=== PATIENT | female | born 1960 | race Caucasian/White ===

== ENCOUNTER 2019-05-25 21:39 | Inpatient (IN) | payer OTHER ==
[2019-05-25] MEDS ORDERED: IPRATROPIUM/ALBUTEROL 0.5-2.5 MG/3 ML AMPUL NEB ONE ×2 (21:57→22:18)
[2019-05-25] MEDS ORDERED: FUROSEMIDE INJ/PF 40 MG/4 ML SDV ONE (22:01)
[2019-05-25] MEDS ORDERED: NITROGLYCERIN 2% OINTMENT 1 GM PACKET ONE (22:01)
[2019-05-25] MEDS ORDERED: ASPIRIN 81 MG TABLET, CHEWABLE PO ONE (22:02)
[2019-05-25] MEDS ORDERED: FUROSEMIDE INJ/PF 40 MG/4 ML SDV IV ONE (22:05)
[2019-05-25] MEDS ORDERED: NITROGLYCERIN 2% OINTMENT 1 GM PACKET TP ONE (22:06)
--- NOTE | 2019-05-25 22:07 | ER Document Report ---
ED General - General Stated Complaint: BREATHING PROBLEMS Time Seen by Provider: 05/25/19 22:02 Primary Care Provider: MAYUR FAN MD [HONORARY] - Follow up as needed Mode of Arrival: Medic Information source: Patient, Emergency Med Personnel Notes: 58-year-old female with COPD, hypertension, previous [place], lung cancer (requiring lobectomy) presents with an acute onset of shortness of breath that started just prior to arrival while driving home. Patient does report recent illness with a nonproductive cough, nausea. She did have a recent hospitalization approximately 1 month ago for a COPD exacerbation. She denies any continuous tobacco use. Prior to arrival patient did receive breathing treatments, magnesium, Solu-Medrol and does report some improvement of her shortness of br eath. - HPI Onset: Just prior to arrival Onset/Duration: Sudden Quality of pain: No pain Severity: None Pain Level: Denies Associated symptoms: Nonproductive cough, Nausea, Shortness of breath, Sweating. denies: Body/muscle aches, Chest pain, Fever, Headache, Vomiting, Rhinnorhea Exacerbated by: Coughing Relieved by: Denies Similar symptoms previously: Yes Recently seen / treated by doctor: Yes Past Medical History - General Information source: Patient - Social History Smoking Status: Former Smoker Frequency of alcohol use: None Drug Abuse: None Lives with: Spouse/Significant other Family History: Reviewed & Not Pertinent Patient has suicidal ideation: No Patient has homicidal ideation: No - Medical History Medical History: Negative Review of Systems - Review of Systems Notes: REVIEW OF SYSTEMS: CONSTITUTIONAL : Denies fever, chills, or sweats. Denies recent illness. Denies weight loss, recent hospitalizations. EENT: Denies visual changes, eye pain. Denies sore throat, oral lesions, difficulty swallowing. CARDIOVASCULAR: Denies chest pain. Denies palpitations. Denies lower extremity edema. RESPIRATORY: + cough. + shortness of breath, wheezing. GASTROINTESTINAL: Denies abdominal pain or distention. Denies nausea, vomiting, or diarrhea. Denies blood in vomitus, stools, or per rectum. Denies black, tarry stools. Denies constipation. GENITOURINARY: Denies difficulty urinating, painful urination, frequency, blood in urine, or vaginal discharge. MUSCULOSKELETAL: Denies back or neck pain or stiffness. Denies joint pain or swelling. SKIN: Denies rash, lesions or sores. HEMATOLOGIC : Denies easy bruising or bleeding. LYMPHATIC: Denies swollen glands. NEUROLOGICAL: Denies confusion or altered mental status. Denies loss of cons ciousness. Denies dizziness or lightheadedness. Denies headache. Denies weakness or paralysis. Denies problems difficulty with ambulation, slurred speech. Denies sensory loss, numbness, or tingling. Denies seizures. PSYCHIATRIC: Denies anxiety or stress. Denies depression, suicidal ideation, or homicidal ideation. Denies visual or auditory hallucinations. Physical Exam - Vital signs Vitals: Resp Pulse Ox 24 H 97 05/25/19 22:00 05/25/19 22:00 - Notes Notes: PHYSICAL EXAMINATION: GENERAL: Moderate distress, on nonrebreather HEAD: Atraumatic, normocephalic. EYES: Pupils equal round and reactive to light, extraocular movements intact, conjunctiva are normal. ENT: Nares patent, oropharynx clear without exudates. Moist mucous membranes. NECK: Normal range of motion, supple without lymphadenopathy LUNGS: Coarse breath sounds bilaterally, expiratory wheezing, increased work of breathing. HEART: Regular rate and rhythm without murmurs ABDOMEN: Soft, nontender, nondistended abdomen. No guarding, no rebound. No masses appreciated. Female : deferred Musculoskeletal: Normal range of motion, no pitting or edema. No cyanosis. NEUROLOGICAL: Cranial nerves grossly intact. Normal speech, normal gait. Normal sensory, motor exams PSYCH: Normal mood, normal affect. SKIN: Warm, Dry, normal turgor, no rashes or lesions noted. Course - Re-evaluation Re-evalutation: 05/26/19 03:30 Laboratory 05/25/19 05/25/19 05/25/19 21:46 21:46 21:46 WBC 12.5 H RBC 4.27 Hgb 12.5 Hct 38.0 MCV 89 MCH 29.4 MCHC 33.0 RDW 14.7 H Plt Count 333 Lymph % (Auto) 16.8 [place] % (Auto) 9.2 Eos % (Auto) 2.6 Baso % (Auto) 0.8 Absolute Neuts (auto) 8.8 H Absolute Lymphs (auto) 2.1 Absolute Monos (auto) 1.1 Absolute Eos (auto) 0.3 Absolute Basos (auto) 0.1 Seg Neutrophils % 70.6 PT 15.9 H INR 1.26 Carbonic Acid HCO3/H2CO3 Ratio ABG pH ABG pCO2 ABG pO2 ABG HCO3 ABG Total CO2 ABG O2 Saturation ABG Base Excess VBG pH VBG pCO2 VBG HCO3 VBG Base Excess FiO2 Sodium 139.9 Potassium 2.8 L* Chloride 106 Carbon Dioxide 22 Anion Gap 12 BUN 11 Creatinine 0.64 Est GFR ( Amer) > 60 Est GFR (MDRD) Non-Af > 60 Glucose 156 H Calcium 8.2 L Magnesium Total Bilirubin 0.7 Direct Bilirubin 0.2 Neonat Total Bilirubin Not Reportable Neonat Direct Bilirubin Not Reportable Neonat Indirect Bili Not Reportable AST 48 H ALT 18 Alkaline Phosphatase 82 Creatine Kinase 55 CK-MB (CK-2) Troponin I NT-Pro-B Natriuret Pep Total Protein 6.2 L Albumin 3.5 Urine Color Urine Appearance Urine pH Ur Specific [place] Urine Protein Urine Glucose (UA) Urine Ketones Urine Blood Urine Nitrite Urine Bilirubin Urine Urobilinogen Ur Leukocyte Esterase Urine WBC (Auto) Urine RBC (Auto) U Hyaline Cast (Auto) Squamous Epi Cells Auto Urine Mucus (Auto) Urine Ascorbic Acid 05/25/19 05/25/19 05/25/19 21:46 21:46 21:46 WBC RBC Hgb Hct MCV MCH MCHC RDW Plt Count Lymph % (Auto) [place] % (Auto) Eos % (Auto) Baso % (Auto) Absolute Neuts (auto) Absolute Lymphs (auto) Absolute Monos (auto) Absolute Eos (auto) Absolute Basos (auto) Seg Neutrophils % PT INR Carbonic Acid HCO3/H2CO3 Ratio ABG pH ABG pCO2 ABG pO2 ABG HCO3 ABG Total CO2 ABG O2 Saturation ABG Base Excess VBG pH 7.34 VBG pCO2 36.8 VBG HCO3 19.5 L VBG Base Excess -5.4 FiO2 Sodium Potassium Chloride Carbon Dioxide Anion Gap BUN Creatinine Est GFR ( Amer) Est GFR (MDRD) Non-Af Glucose Calcium Magnesium 3.1 H Total Bilirubin Direct Bilirubin Neonat Total Bilirubin Neonat Direct Bilirubin Neonat Indirect Bili AST ALT Alkaline Phosphatase Creatine Kinase CK-MB (CK-2) 0.62 Troponin I 0.019 NT-Pro-B Natriuret Pep 1820 H Total Protein Albumin Urine Color Urine Appearance Urine pH Ur Specific [place] Urine Protein Urine Glucose (UA) Urine Ketones Urine Blood Urine Nitrite Urine Bilirubin Urine Urobilinogen Ur Leukocyte Esterase Urine WBC (Auto) Urine RBC (Auto) U Hyaline Cast (Auto) Squamous Epi Cells Auto Urine Mucus (Auto) Urine Ascorbic Acid 05/25/19 05/25/19 22:17 23:20 WBC RBC Hgb Hct MCV MCH MCHC RDW Plt Count Lymph % (Auto) [place] % (Auto) Eos % (Auto) Baso % (Auto) Absolute Neuts (auto) Absolute Lymphs (auto) Absolute Monos (auto) Absolute Eos (auto) Absolute Basos (auto) Seg Neutrophils % PT INR Carbonic Acid 0.73 L HCO3/H2CO3 Ratio 26:1 ABG pH 7.52 H ABG pCO2 24.3 L ABG pO2 105.5 H ABG HCO3 19.4 L ABG Total CO2 20.2 L ABG O2 Saturation 98.4 H ABG Base Excess -1.7 VBG pH VBG pCO2 VBG HCO3 VBG Base Excess FiO2 35% Sodium Potassium Chloride Carbon Dioxide Anion Gap BUN Creatinine Est GFR ( Amer) Est GFR (MDRD) Non-Af Glucose Calcium Magnesium Total Bilirubin Direct Bilirubin Neonat Total Bilirubin Neonat Direct Bilirubin Neonat Indirect Bili AST ALT Alkaline Phosphatase Creatine Kinase CK-MB (CK-2) Troponin I NT-Pro-B Natriuret Pep Total Protein Albumin Urine Color STRAW Urine Appearance CLEAR Urine pH 7.0 Ur Specific [place] 1.010 Urine Protein NEGATIVE Urine Glucose (UA) NEGATIVE Urine Ketones NEGATIVE Urine Blood NEGATIVE Urine Nitrite NEGATIVE Urine Bilirubin NEGATIVE Urine Urobilinogen NEGATIVE Ur Leukocyte Esterase NEGATIVE Urine WBC (Auto) 2 Urine RBC (Auto) 1 U Hyaline Cast (Auto) 4 Squamous Epi Cells Auto <1 Urine Mucus (Auto) RARE Urine Ascorbic Acid NEGATIVE Chest X-Ray 05/25/19 22:02 IMPRESSION: Bibasilar airspace opacities concerning for pneumonia. copyright 2010 [employer]- All Rights Reserved Chest/Abdomen CTA 05/25/19 22:03 IMPRESSION:No evidence of pulmonary embolus Prominent pulmonary arteries suggesting hypertension Emphysema Mixed alveolar and interstitial infiltrates predominantly in the lung bases. These are nonspecific but may reflect developing edema. Temp Pulse Resp BP Pulse Ox 24 H 97 05/25/19 22:00 05/25/19 22:00 05/26/19 03:31 58-year-old female presents via EMS in respiratory distress. Patient reports a sudden onset of shortness of breath while driving. Upon arrival patient is on a nonrebreather, has increased work of breathing and accessory muscle use. She is pale, diaphoretic, tachypneic and hypoxic. Patient was transitioned from nonrebreather to BiPAP and had immediate improvement of her shortness of breath. Because of the patient's sudden onset of shortness of breath, history of lung cancer CTA was obtained but showed no evidence of pulmonary embolism. Pneumonia was noted. Patient was admitted in April for a COPD exacerbation so she will be treated as hospital-acquired pneumonia. CBC shows a mild leukocytosis. CMP shows hypokalemia with a potassium of 2.8. Patient did receive vancomycin, Zosyn. Dr. Ruano hospitalist admitting the patient has requested azithromycin as he thinks this is an atypical pneumonia. On reevaluation patient is requesting trial off BiPAP. Patient did maintain an O2 saturation of 93% while on room air. Patient has been accepted by the hospitalist to telemetry. - Vital Signs Vital signs: Temp Pulse Resp BP Pulse Ox 24 H 97 05/25/19 22:00 05/25/19 22:00 - Laboratory Result Diagrams: 05/25/19 21:46 05/25/19 21:46 Laboratory results interpreted by me: 05/25/19 05/25/19 05/25/19 21:46 21:46 21:46 WBC 12.5 H RDW 14.7 H Absolute Neuts (auto) 8.8 H PT 15.9 H Carbonic Acid ABG pH ABG pCO2 ABG pO2 ABG HCO3 ABG Total CO2 ABG O2 Saturation VBG HCO3 Potassium 2.8 L* Glucose 156 H Calcium 8.2 L Magnesium AST 48 H NT-Pro-B Natriuret Pep Total Protein 6.2 L 05/25/19 05/25/19 05/25/19 21:46 21:46 21:46 WBC RDW Absolute Neuts (auto) PT Carbonic Acid ABG pH ABG pCO2 ABG pO2 ABG HCO3 ABG Total CO2 ABG O2 Saturation VBG HCO3 19.5 L Potassium Glucose Calcium Magnesium 3.1 H AST NT-Pro-B Natriuret Pep 1820 H Total Protein 05/25/19 23:20 WBC RDW Absolute Neuts (auto) PT Carbonic Acid 0.73 L ABG pH 7.52 H ABG pCO2 24.3 L ABG pO2 105.5 H ABG HCO3 19.4 L ABG Total CO2 20.2 L ABG O2 Saturation 98.4 H VBG HCO3 Potassium Glucose Calcium Magnesium AST NT-Pro-B Natriuret Pep Total Protein - Diagnostic Test Radiology reviewed: Image reviewed, Reports reviewed - EKG Interpretation by Me EKG shows normal: Sinus rhythm When compared to previous EKG there are: No significant change Critical Care Note - Critical Care Note Total time excluding time spent on procedures (mins): 38 - Minutes of critical care time spent in direct contact evaluating and reevaluating the patient, treating symptoms, reviewing labs and studies and speaking with family and consultants excluding any procedures Discharge - Discharge Clinical Impression: Respiratory distress, Healthcare-associated pneumonia, History of lung cancer, History of COPD, Hypokalemia Condition: Good Disposition: ADMITTED INPATIENT Admitting Provider: Bindu (Hospitalist) Unit Admitted: Telemetry Referrals: MAYUR FAN MD [HONORARY] - Follow up as needed
[2019-05-25 22:22] LABS: VENOUS BLOOD BASE EXCESS -5.4 mmol/L; VENOUS BLOOD HCO3 19.5 mmol/L (20-32); VENOUS BLOOD PCO2 36.8 mmHg (35-63); VENOUS BLOOD PH 7.34 (7.30-7.42)
[2019-05-25 22:23] LABS: ABSOLUTE BASOPHILS # (AUTO) 0.1 10^3/uL (0.0-0.2); ABSOLUTE EOSINOPHILS # (AUTO) 0.3 10^3/uL (0.0-0.6); ABSOLUTE LYMPHOCYTES (AUTO) 2.1 10^3/uL (0.5-4.7); ABSOLUTE MONOCYTES (AUTO) 1.1 10^3/uL (0.1-1.4); ABSOLUTE NEUT (AUTO) 8.8 10^3/uL (1.7-8.2); BASOPHILS % (AUTO) 0.8 % (0-2); EOSINOPHILS % (AUTO) 2.6 % (0-6); HEMOGLOBIN 12.5 g/dL (12.0-15.5); LYMPHOCYTES % (AUTO) 16.8 % (13-45); MEAN CORPUSCULAR HEMOGLOBIN 29.4 pg (27.0-33.4); MEAN CORPUSCULAR VOLUME 89 fl (80-97); MONOCYTES % (AUTO) 9.2 % (3-13); PLATELET COUNT 333 10^3/uL (150-450); RED BLOOD COUNT 4.27 10^6/uL (3.72-5.28); RED CELL DISTRIBUTION WIDTH 14.7 % (11.5-14.0); SEGMENTED NEUTROPHILS % (AUTO) 70.6 % (42-78); TOTAL CELLS COUNTED % (AUTO) 100 %; WHITE BLOOD COUNT 12.5 10^3/uL (4.0-10.5)
[2019-05-25 22:33] LABS: INTERNATIONAL RATION (INR) 1.26; PROTHROMBIN TIME 15.9 SEC (11.4-15.4)
--- NOTE | 2019-05-25 22:36 | RADIOLOGY REPORT (SQ) ---
EXAM DESCRIPTION: XR CHEST 1 VIEW COMPLETED DATE/TME: 05/25/2019 22:02 CLINICAL HISTORY: 58 years, Female, sob COMPARISON: None. NUMBER OF VIEWS: 1 TECHNIQUE: Portable chest LIMITATIONS: None. FINDINGS: The heart size is normal. Osteopenia. [id number] catheter in place. Bibasilar airspace opacities. No pneumothorax. Old left rib fractures IMPRESSION: Bibasilar airspace opacities concerning for pneumonia. copyright 2010 [employer]- All Rights Reserved
[2019-05-25 22:43] LABS: ALBUMIN 3.5 g/dL (3.5-5.0); ALKALINE PHOSPHATASE 82 U/L (38-126); ANION GAP 12 (5-19); ASPARTATE AMINO TRANSFERASE 48 U/L (14-36); BILIRUBIN,DIRECT 0.2 mg/dL (0.0-0.4); BILIRUBIN,TOTAL 0.7 mg/dL (0.2-1.3); BLOOD UREA NITROGEN 11 mg/dL (7-20); CALCIUM 8.2 mg/dL (8.4-10.2); CARBON DIOXIDE 22 mmol/L (22-30); CHLORIDE 106 mmol/L (98-107); CREATINE KINASE 55 U/L (30-135); GLUCOSE 156 mg/dL (75-110); TOTAL PROTEIN 6.2 g/dL (6.3-8.2)
[2019-05-25 22:54] LABS: CREATINE KINASE MB 0.62 ng/mL (<4.55); TROPONIN I 0.019 ng/mL
[2019-05-25 23:01] LABS: POTASSIUM 2.8 mmol/L (3.6-5.0)
[2019-05-25 23:19] LABS: APPEARANCE,URINE CLEAR; BILIRUBIN,URINE NEGATIVE (NEGATIVE); COLOR,URINE STRAW; GLUCOSE, URINE NEGATIVE (NEGATIVE); KETONES,URINE NEGATIVE (NEGATIVE); LEUKOCYTE ESTERASE,URINE NEGATIVE (NEGATIVE); NITRITE,URINE NEGATIVE (NEGATIVE); PROTEIN,URINE NEGATIVE (NEGATIVE); UROBILINOGEN,URINE NEGATIVE mg/dL (<2.0)
[2019-05-25 23:32] LABS: ARTERIAL BLOOD BASE EXCESS -1.7 mmol/L; ARTERIAL BLOOD H2CO3 0.73 mmol/L (1.05-1.35); ARTERIAL BLOOD HCO3 19.4 mmol/L (20-24); ARTERIAL BLOOD O2 SATURATION 98.4 % (94-98); ARTERIAL BLOOD PCO2 24.3 mmHg (35-45); ARTERIAL BLOOD PH 7.52 (7.35-7.45); ARTERIAL BLOOD PO2 105.5 mmHg (80-100); ARTERIAL BLOOD TOTAL CO2 20.2 mmol/L (21-25)
[2019-05-25 23:37] LABS: ARTERIAL BLOOD FIO2 35%
[2019-05-26] MEDS ORDERED: VANCOMYCIN HCL INJ 1000 MG VIAL IV ONE (00:15)
[2019-05-26] MEDS ORDERED: RINGERS SOLUTION,LACTATED 1,000 ML IV ONE (00:15)
[2019-05-26] MEDS ORDERED: PIPERACILLIN/TAZOBACTAM 3.375 GM VIAL IV ONE (00:15)
--- NOTE | 2019-05-26 00:59 | RADIOLOGY REPORT (SQ) ---
EXAM DESCRIPTION: CT CHEST ANGIOGRAPHY WITHOUT THEN WITH IV CONTRAST COMPLETED DATE/TME: 05/25/2019 22:03 : CLINICAL HISTORY: 58 years Female sob, previous lung cancer COMPARISON: None are available. TECHNIQUE: Contiguous axial images were obtained through the chest during the infusion of IV contrast. Reformatted images obtained. MIP reformatted images obtained. This exam was performed according to our department optimization program which includes automated exposure control, adjustment of the mA and/or kv according to patient size and/or use of iterative reconstruction technique. FINDINGS: Heart appears prominent. Aorta is normal in caliber without dissection or rupture. No evidence of pericardial or pleural effusion. Calcification in aorta. Pulmonary arteries are prominent suggesting pulmonary hypertension. No evidence of pulmonary embolus. Emphysematous change. Mixed alveolar and interstitial infiltrates in the lung bases. Postsurgical changes suggesting upper lobectomy on the left. IMPRESSION:No evidence of pulmonary embolus Prominent pulmonary arteries suggesting hypertension Emphysema Mixed alveolar and interstitial infiltrates predominantly in the lung bases. These are nonspecific but may reflect developing edema.
[2019-05-26] MEDS: POTASSI CL 20 MEQ/50 ML RIDER 20 MEQ/50 ML RTUPB IV SCH ×2 (01:36→03:57)
[2019-05-26] MEDS ORDERED: MAGNESIUM SULFATE/D5W 1 GM/100 ML RTUPB IV ONE (01:49)
[2019-05-26] MEDS ORDERED: AZITHROMYCIN 250 MG TABLET PO ONE (02:11)
[2019-05-26] MEDS ORDERED: PROMETHAZINE HCL INJ 25 MG/1 ML VIAL IV PRN (02:50)
[2019-05-26] MEDS ORDERED: MAG HYDROX/AL HYDROX/SIMETH SUSP 30 ML UDCUP PO PRN (02:50)
[2019-05-26] MEDS ORDERED: MAGNESIUM HYDROXIDE SUSP 30 ML UDCUP PO PRN (02:50)
[2019-05-26] MEDS ORDERED: DIAZEPAM INJ 10 MG/2 ML DISP.SYRIN IV PRN (02:56)
[2019-05-26] MEDS ORDERED: LEVALBUTEROL HCL NEB 0.63 MG/3 ML AMPUL NEB PRN (02:56)
[2019-05-26] MEDS ORDERED: MORPHINE SULFATE 10 MG/ML INJ IV PRN ×5 (02:56→03:18)
[2019-05-26] MEDS ORDERED: HYDRALAZINE HCL INJ/PF 20 MG/1 ML SDV IV PRN (02:56)
[2019-05-26] MEDS: NITROGLYCERIN 2% OINTMENT 1 GM PACKET TP SCH ×3 (03:48→11:49)
[2019-05-26 04:35] LABS: CREATINE KINASE MB 1.92 ng/mL (<4.55)
[2019-05-26 04:39] LABS: FREE T3 3.32 pg/mL (2.77-5.27); FREE T4 (FREE THYROXINE) 0.96 ng/dL (0.78-2.19)
[2019-05-26 04:41] LABS: TROPONIN I 0.142 ng/mL
[2019-05-26 04:53] LABS: THYROID STIMULATING HORMONE 0.83 uIU/mL (0.47-4.68)
[2019-05-26] MEDS ORDERED: HEPARIN SOD (PORCINE) 5,000 UNIT/ML 1 ML VIAL SUBCUT SCH (06:00)
[2019-05-26 06:43] LABS: CHOLESTEROL 136.54 mg/dL (0-200); TRIGLYCERIDES 74 mg/dL (<150)
[2019-05-26 06:44] LABS: ANION GAP 9 (5-19); BLOOD UREA NITROGEN 10 mg/dL (7-20); CALCIUM 8.1 mg/dL (8.4-10.2); CARBON DIOXIDE 24 mmol/L (22-30); CHLORIDE 106 mmol/L (98-107); GLUCOSE 167 mg/dL (75-110); POTASSIUM 3.5 mmol/L (3.6-5.0)
[2019-05-26 06:55] LABS: DIRECT LDL 93 mg/dL (<100)
--- NOTE | 2019-05-26 07:00 | PDOC H&P ---
History of Present Illness Admission Date/PCP: 05/26/2019 02:06 No local PCP Patient complains of: Dyspnea History of Present Illness: JONNATHAN WEBER is a 58 year old female who presented to the emergency room via EMS with acute dyspnea. She admits that while driving home last evening she holden ddenly developed severe dyspnea requiring her to summon EMS for help. She admits an associated nonproductive cough, nausea and diaphoresis. She denies other associated or accompanying symptoms. She admits prior similar symptoms with a hospitalization 1 month ago in [facility] where she was treated for an exacerbation of COPD. She has not identified any aggravating or ameliorating factors for her acute dyspnea. EMS found the patient to be hypoxic and having significant work of breathing and thus treated her with nebulizer treatments and intravenous steroids. Upon arrival to the emergency room patient was continued on nebulizer therapy and was eventually converted to BiPAP due to her severe work of breathing. She improved gradually over her ER stay and at the present time does not require BiPAP. Patient's ER laboratory and x-ray evaluation revealed possible early pulmonary edema. Her BNP was elevated at 1650, her potassium was low at 2.8 and her white blood count was elevated at 12,500 after having received Solu-Medrol. Patient was subsequently admitted to the hospital for further evaluation and treatment. Past Medical History Cardiac Medical History: Reports: Coronary Artery Disease, Myocardial Infarction, Hypertension Denies: Atrial Fibrillation, Congestive Heart Failure, DVT, Pulmonary Embolism Pulmonary Medical History: Reports: Chronic Obstructive Pulmonary Disease (COPD), Respiratory Failure, Other - Lung cancer: status post lobectomy EENT Medical History: Denies: Cataracts, Ears - Hearing aids, Nose - Allergic rhinitis Neurological Medical History: Denies: Hemorrhagic CVA, Ischemic CVA, Multiple Sclerosis, Seizures Endocrine Medical History: Denies: Diabetes Mellitus Type 1, Diabetes Mellitus Type 2, Hyperthyroidism, Hypothyroidism Renal/ Medical History: Denies: Chronic Kidney Disease, Nephrolithiasis Malignancy Medical History: Reports: Lung Cancer GI Medical History: Denies: Cirrhosis, Crohn's Disease, Gastroesophageal Reflux Disease, Hepatitis, Peptic Ulcer Disease, Ulcerative Colitis Musculoskeltal Medical History: Denies: Arthritis, Gout Skin Medical History: Denies: Eczema, Psoriasis Psychiatric Medical History: Denies: Alcohol Dependency, Substance Abuse, Tobacco Dependency Traumatic Medical History: Reports: None Hematology: Denies: Anemia, Bleeding Tendencies Infectious Medical History: Reports: None Past Surgical History Past Surgical History: Reports: Other - Lobectomy Social History Information Source: Patient Lives with: Spouse/Significant other Smoking Status: Former Smoker Frequency of Alcohol Use: None Hx Recreational Drug Use: No Drugs: None Hx Prescription Drug Abuse: No - Advance Directive Resuscitation Status: Full Code Surrogate healthcare decision maker:: Randee Weber Family History Family History: CAD, Hypertension, Malignancy. denies: DM Parental Family History Reviewed: Yes Children Family History Reviewed: No Sibling(s) Family History Reviewed.: Yes Medication/Allergy Allergies/Adverse Reactions: budesonide Allergy (Verified 05/26/19 04:04) codeine Allergy (Verified 05/26/19 04:04) moxifloxacin Allergy (Verified 05/26/19 04:04) Review of Systems Constitutional: ABSENT: chills, fever(s) Eyes: ABSENT: visual disturbances, other - Eye pain Ears: ABSENT: hearing changes, other - Ear pain Nose, Mouth, and Throat: ABSENT: mouth pain, sore throat Cardiovascular: ABSENT: chest pain, dyspnea on exertion, edema, orthropnea, palpitations Respiratory: PRESENT: cough, dyspnea. ABSENT: sputum Gastrointestinal: ABSENT: abdominal pain, constipation, diarrhea, nausea, vomiting Genitourinary: ABSENT: dysuria, hematuria Musculoskeletal: ABSENT: back pain, joint swelling, muscle weakness Integumentary: ABSENT: pruritus, rash Neurological: ABSENT: confusion, convulsions, focal weakness, memory loss, syncope Endocrine: ABSENT: cold intolerance, heat intolerance Hematologic/Lymphatic: ABSENT: easy bleeding, easy bruising Allergic/Immunologic: ABSENT: seasonal rhinorrhea Physical Exam Vital Signs: Temp Pulse Resp BP Pulse Ox 24 H 97 05/25/19 22:00 05/25/19 22:00 Results Laboratory Results: 05/25/19 21:46 05/25/19 21:46 05/25/19 05/25/19 05/25/19 21:46 21:46 21:46 WBC 12.5 H RBC 4.27 Hgb 12.5 Hct 38.0 MCV 89 MCH 29.4 MCHC 33.0 RDW 14.7 H Plt Count 333 Seg Neutrophils % 70.6 Carbonic Acid HCO3/H2CO3 Ratio ABG pH ABG pCO2 ABG pO2 ABG HCO3 ABG O2 Saturation ABG Base Excess VBG pH 7.34 VBG pCO2 36.8 VBG HCO3 19.5 L VBG Base Excess -5.4 FiO2 Sodium 139.9 Potassium 2.8 L* Chloride 106 Carbon Dioxide 22 Anion Gap 12 BUN 11 Creatinine 0.64 Est GFR ( Amer) > 60 Glucose 156 H Calcium 8.2 L Magnesium Total Bilirubin 0.7 AST 48 H Alkaline Phosphatase 82 Total Protein 6.2 L Albumin 3.5 Urine Color Urine Appearance Urine pH Ur Specific [place] Urine Protein Urine Glucose (UA) Urine Ketones Urine Blood Urine Nitrite Ur Leukocyte Esterase Urine WBC (Auto) Urine RBC (Auto) 05/25/19 05/25/19 05/25/19 21:46 22:17 23:20 WBC RBC Hgb Hct MCV MCH MCHC RDW Plt Count Seg Neutrophils % Carbonic Acid 0.73 L HCO3/H2CO3 Ratio 26:1 ABG pH 7.52 H ABG pCO2 24.3 L ABG pO2 105.5 H ABG HCO3 19.4 L ABG O2 Saturation 98.4 H ABG Base Excess -1.7 VBG pH VBG pCO2 VBG HCO3 VBG Base Excess FiO2 35% Sodium Potassium Chloride Carbon Dioxide Anion Gap BUN Creatinine Est GFR ( Amer) Glucose Calcium Magnesium 3.1 H Total Bilirubin AST Alkaline Phosphatase Total Protein Albumin Urine Color STRAW Urine Appearance CLEAR Urine pH 7.0 Ur Specific [place] 1.010 Urine Protein NEGATIVE Urine Glucose (UA) NEGATIVE Urine Ketones NEGATIVE Urine Blood NEGATIVE Urine Nitrite NEGATIVE Ur Leukocyte Esterase NEGATIVE Urine WBC (Auto) 2 Urine RBC (Auto) 1 05/25/19 05/25/19 21:46 21:46 Creatine Kinase 55 CK-MB (CK-2) 0.62 Troponin I 0.019 NT-Pro-B Natriuret Pep 1820 H Impressions: Chest X-Ray 05/25/19 22:02 IMPRESSION: Bibasilar airspace opacities concerning for pneumonia. copyright 2010 [employer]- All Rights Reserved Chest/Abdomen CTA 05/25/19 22:03 IMPRESSION:No evidence of pulmonary embolus Prominent pulmonary arteries suggesting hypertension Emphysema Mixed alveolar and interstitial infiltrates predominantly in the lung bases. These are nonspecific but may reflect developing edema. Assessment and Plan - Diagnosis (1) Acute pulmonary edema Is this a current diagnosis for this admission?: Yes Plan: Patient will be admitted and serial cardiac enzymes will be obtained. A echocardiogram will be performed to evaluate for heart failure and pulmonary hypertension. She will be continued with BiPAP on a as needed basis for acute dyspnea but will also receive morphine sulfate 2 mg IV every 1 hour on a as needed basis for acute dyspnea. (2) Acute respiratory failure with hypoxia Is this a current diagnosis for this admission?: Yes Plan: Patient will be continued with O2 supplemental support utilizing nasal cannula and or noninvasive airway pressure devices such as BiPAP or CPAP as needed to maintain adequate oxygen saturation of greater than 93%. (3) Hypertension Qualifiers: Hypertension type: essential hypertension Qualified Code(s): I10 - Essential (primary) hypertension Is this a current diagnosis for this admission?: Yes Plan: Patient's antihypertensive regiment will be continued at the present time however adjustments to the medications and/or dosages may be required in light of her possible heart failure. Her blood pressure be monitored frequently throughout her hospital course. (4) Chronic obstructive pulmonary disease Qualifiers: COPD type: unspecified COPD Qualified Code(s): J44.9 - Chronic obstructive pulmonary disease, unspecified Is this a current diagnosis for this admission?: Yes Plan: Patient will be continued on a pulmonary regiment for COPD utilizing her usual medications or a reasonable formulary substitution there of. Her O2 saturation and respiratory status we monitored frequently throughout her hospital course. (5) Hypokalemia Is this a current diagnosis for this admission?: Yes Plan: Potassium repletion with IV and oral K. - Time Time Spent with patient: 25-34 minutes Medications reviewed and adjusted accordingly: Yes Anticipated discharge: Home - Inpatient Certification Based on my medical assessment, after consideration of the patient's comorbidities, presenting symptoms, or acuity I expect that the services needed warrant INPATIENT care.: Yes I certify that my determination is in accordance with my understanding of Medicare's requirements for reasonable and necessary INPATIENT services [42 CFR 412.3e].: Yes Medical Necessity: Need Close Monitoring Due to Risk of Patient Decompensation, Need For Continuous Telemetry Monitoring, Risk of Complication if Not Cared For in Hospital
[2019-05-26] MEDS ORDERED: BUDESONIDE NEB 0.5 MG/2 ML AMPUL NEB SCH (08:00)
[2019-05-26] MEDS: LEVALBUTEROL HCL NEB 1.25 MG/3 ML AMPUL NEB SCH ×3 (08:02→23:52)
[2019-05-26] MEDS: IPRATROPIUM BROMIDE 0.02% NEB 0.5 MG/2.5 ML AMPUL NEB SCH ×3 (08:04→23:52)
[2019-05-26 09:00] LABS: HEMATOCRIT 33.2 % (36.0-47.0); HEMOGLOBIN 11.1 g/dL (12.0-15.5); MEAN CORPUSCULAR HEMOGLOBIN 29.3 pg (27.0-33.4); MEAN CORPUSCULAR HGB CONC 33.4 g/dL (32.0-36.0); MEAN CORPUSCULAR VOLUME 88 fl (80-97); PLATELET COUNT 264 10^3/uL (150-450); RED BLOOD COUNT 3.78 10^6/uL (3.72-5.28); RED CELL DISTRIBUTION WIDTH 14.9 % (11.5-14.0); WHITE BLOOD COUNT 11.8 10^3/uL (4.0-10.5)
[2019-05-26 09:02] LABS: ALKALINE PHOSPHATASE 85 U/L (38-126); ASPARTATE AMINO TRANSFERASE 25 U/L (14-36); BILIRUBIN,DIRECT 0.3 mg/dL (0.0-0.4); BILIRUBIN,TOTAL 0.6 mg/dL (0.2-1.3); TOTAL PROTEIN 5.6 g/dL (6.3-8.2)
[2019-05-26] MEDS: POTASSIUM CHLORIDE 10 MEQ CAPSULE.ER PO SCH ×3 (09:04→16:02)
[2019-05-26] MEDS: METOPROLOL SUCCINATE 50 MG TAB.SR.24H PO SCH (09:04)
[2019-05-26] MEDS: FAMOTIDINE 20 MG TABLET PO SCH ×2 (09:07→21:24)
[2019-05-26] MEDS: DOCUSATE SODIUM 100 MG CAPSULE PO SCH ×2 (09:07→17:17)
[2019-05-26] MEDS: LISINOPRIL 10 MG TABLET PO SCH (09:09)
[2019-05-26 09:30] LABS: ABSOLUTE LYMPHOCYTES# (MANUAL) 0.5 10^3/uL (0.5-4.7); ABSOLUTE MONOCYTES # (MANUAL) 0.2 10^3/uL (0.1-1.4); BASOPHILS % (MANUAL) 1 % (0-2); EOSINOPHILS % (MANUAL) 0 % (0-6); LYMPHOCYTES % (MANUAL) 4 % (13-45); MONOCYTES % (MANUAL) 2 % (3-13); SEGMENTED NEUTROPHILS % (MAN) 93 % (42-78); TOTAL CELLS COUNTED 100
[2019-05-26 09:31] LABS: ANISOCYTOSIS SLIGHT; PLATELET COMMENT ADEQUATE
[2019-05-26 10:52] LABS: CREATINE KINASE MB 2.7 ng/mL (<4.55); TROPONIN I 0.083 ng/mL
--- NOTE | 2019-05-26 11:17 | PDOC PROGRESS REPORT ---
Subjective Progress Note for:: 05/26/19 Subjective:: 58 year old female who presented to the emergency room via EMS with acute dyspnea. She admits that while driving home last evening she suddenly developed severe dyspnea requiring her to summon EMS for help. She admits an associated nonproductive cough, nausea and diaphoresis. She denies other associated or accompanying symptoms. She admits prior similar symptoms with a hospitalization 1 month ago in [facility] where she was treated for an exace rbation of COPD. She has not identified any aggravating or ameliorating factors for her acute dyspnea. EMS found the patient to be hypoxic and having significant work of breathing and thus treated her with nebulizer treatments and intravenous steroids. Upon arrival to the emergency room patient was continued on nebulizer therapy and was eventually converted to BiPAP due to her severe work of breathing. She improved gradually over her ER stay and at the present time does not require BiPAP. Patient's ER laboratory and x-ray evaluation revealed possible early pulmonary edema. Her BNP was elevated at 1650, her potassium was low at 2.8 and her white blood count was elevated at 12,500 after having received Solu-Medrol. Patient was subsequently admitted to the hospital for further evaluation and treatment. 05/26/2019-pulse ox is 94% room air today. Patient is still shortness of breath on talking. Plan to put her on 2 L oxygen nasal cannula and restart her home medications. Plan is also started on Lasix 40 mg p.o. daily and repeat the chest x-ray today. Reason For Visit: ACUTE PULMONARY EDEMA, ACUTE RESPIRATORY FAILURE Physical Exam Vital Signs: Temp Pulse Resp BP Pulse Ox 97.5 F 58 L 16 129/60 H 98 05/26/19 06:27 05/26/19 08:04 05/26/19 08:04 05/26/19 06:27 05/26/19 08:04 Intake & Output 05/25/19 05/26/19 05/27/19 06:59 06:59 06:59 Intake Total 1420 Output Total 50 Balance 1370 Weight 72.6 kg General appearance: PRESENT: cooperative, mild distress Head exam: PRESENT: atraumatic Eye exam: PRESENT: conjunctiva pink, PERRLA Mouth exam: PRESENT: neck supple Neck exam: ABSENT: carotid bruit, JVD, lymphadenopathy, thyromegaly Respiratory exam: PRESENT: clear to auscultation corina, decreased breath sounds. ABSENT: rales, rhonchi, wheezes Cardiovascular exam: PRESENT: RRR. ABSENT: diastolic murmur, rubs, systolic murmur GI/Abdominal exam: PRESENT: normal bowel sounds, soft. ABSENT: distended, guarding, mass, organolmegaly, rebound, tenderness Rectal exam: PRESENT: deferred Extremities exam: PRESENT: full ROM. ABSENT: calf tenderness, clubbing, pedal edema Neurological exam: PRESENT: alert, awake, oriented to person, oriented to place, oriented to time, oriented to situation, CN II-XII grossly intact. ABSENT: motor sensory deficit Psychiatric exam: PRESENT: appropriate affect, normal mood. ABSENT: homicidal ideation, suicidal ideation Results Laboratory Results: 05/26/19 06:10 05/26/19 06:10 05/25/19 05/25/19 05/25/19 21:46 21:46 21:46 WBC 12.5 H RBC 4.27 Hgb 12.5 Hct 38.0 MCV 89 MCH 29.4 MCHC 33.0 RDW 14.7 H Plt Count 333 Seg Neutrophils % 70.6 Carbonic Acid HCO3/H2CO3 Ratio ABG pH ABG pCO2 ABG pO2 ABG HCO3 ABG O2 Saturation ABG Base Excess VBG pH 7.34 VBG pCO2 36.8 VBG HCO3 19.5 L VBG Base Excess -5.4 FiO2 Sodium 139.9 Potassium 2.8 L* Chloride 106 Carbon Dioxide 22 Anion Gap 12 BUN 11 Creatinine 0.64 Est GFR ( Amer) > 60 Glucose 156 H Calcium 8.2 L Magnesium Total Bilirubin 0.7 AST 48 H Alkaline Phosphatase 82 Total Protein 6.2 L Albumin 3.5 Triglycerides Cholesterol LDL Cholesterol Direct VLDL Cholesterol HDL Cholesterol TSH Free T4 Free T3 pg/mL Urine Color Urine Appearance Urine pH Ur Specific [place] Urine Protein Urine Glucose (UA) Urine Ketones Urine Blood Urine Nitrite Ur Leukocyte Esterase Urine WBC (Auto) Urine RBC (Auto) 05/25/19 05/25/19 05/25/19 21:46 22:17 23:20 WBC RBC Hgb Hct MCV MCH MCHC RDW Plt Count Seg Neutrophils % Carbonic Acid 0.73 L HCO3/H2CO3 Ratio 26:1 ABG pH 7.52 H ABG pCO2 24.3 L ABG pO2 105.5 H ABG HCO3 19.4 L ABG O2 Saturation 98.4 H ABG Base Excess -1.7 VBG pH VBG pCO2 VBG HCO3 VBG Base Excess FiO2 35% Sodium Potassium Chloride Carbon Dioxide Anion Gap BUN Creatinine Est GFR ( Amer) Glucose Calcium Magnesium 3.1 H Total Bilirubin AST Alkaline Phosphatase Total Protein Albumin Triglycerides Cholesterol LDL Cholesterol Direct VLDL Cholesterol HDL Cholesterol TSH Free T4 Free T3 pg/mL Urine Color STRAW Urine Appearance CLEAR Urine pH 7.0 Ur Specific [place] 1.010 Urine Protein NEGATIVE Urine Glucose (UA) NEGATIVE Urine Ketones NEGATIVE Urine Blood NEGATIVE Urine Nitrite NEGATIVE Ur Leukocyte Esterase NEGATIVE Urine WBC (Auto) 2 Urine RBC (Auto) 1 05/26/19 05/26/19 05/26/19 03:45 06:10 06:10 WBC RBC Hgb Hct MCV MCH MCHC RDW Plt Count Seg Neutrophils % Carbonic Acid HCO3/H2CO3 Ratio ABG pH ABG pCO2 ABG pO2 ABG HCO3 ABG O2 Saturation ABG Base Excess VBG pH VBG pCO2 VBG HCO3 VBG Base Excess FiO2 Sodium 139.4 Potassium 3.5 L Chloride 106 Carbon Dioxide 24 Anion Gap 9 BUN 10 Creatinine 0.64 Est GFR ( Amer) > 60 Glucose 167 H Calcium 8.1 L Magnesium Total Bilirubin AST Alkaline Phosphatase Total Protein Albumin Triglycerides 74 Cholesterol 136.54 LDL Cholesterol Direct 93 VLDL Cholesterol 15.0 HDL Cholesterol 44 TSH 0.83 Free T4 0.96 Free T3 pg/mL 3.32 Urine Color Urine Appearance Urine pH Ur Specific [place] Urine Protein Urine Glucose (UA) Urine Ketones Urine Blood Urine Nitrite Ur Leukocyte Esterase Urine WBC (Auto) Urine RBC (Auto) 05/26/19 05/26/19 06:10 06:10 WBC 11.8 H RBC 3.78 Hgb 11.1 L Hct 33.2 L MCV 88 MCH 29.3 MCHC 33.4 RDW 14.9 H Plt Count 264 Seg Neutrophils % Not Reportable Carbonic Acid HCO3/H2CO3 Ratio ABG pH ABG pCO2 ABG pO2 ABG HCO3 ABG O2 Saturation ABG Base Excess VBG pH VBG pCO2 VBG HCO3 VBG Base Excess FiO2 Sodium Potassium Chloride Carbon Dioxide Anion Gap BUN Creatinine Est GFR ( Amer) Glucose Calcium Magnesium Total Bilirubin 0.6 AST 25 Alkaline Phosphatase 85 Total Protein 5.6 L Albumin 3.0 L Triglycerides Cholesterol LDL Cholesterol Direct VLDL Cholesterol HDL Cholesterol TSH Free T4 Free T3 pg/mL Urine Color Urine Appearance Urine pH Ur Specific [place] Urine Protein Urine Glucose (UA) Urine Ketones Urine Blood Urine Nitrite Ur Leukocyte Esterase Urine WBC (Auto) Urine RBC (Auto) 05/25/19 05/25/19 05/26/19 21:46 21:46 03:45 Creatine Kinase 55 80 CK-MB (CK-2) 0.62 Troponin I 0.019 NT-Pro-B Natriuret Pep 1820 H 05/26/19 05/26/19 05/26/19 03:45 06:10 09:59 Creatine Kinase 111 CK-MB (CK-2) 1.92 Troponin I 0.142 NT-Pro-B Natriuret Pep 2290 H 05/26/19 09:59 Creatine Kinase CK-MB (CK-2) 2.70 Troponin I 0.083 NT-Pro-B Natriuret Pep Impressions: Chest/Abdomen CTA 05/25/19 22:03 IMPRESSION:No evidence of pulmonary embolus Prominent pulmonary arteries suggesting hypertension Emphysema Mixed alveolar and interstitial infiltrates predominantly in the lung bases. These are nonspecific but may reflect developing edema. Assessment and Plan - Diagnosis (1) Acute pulmonary edema Is this a current diagnosis for this admission?: Yes Plan: Patient will be admitted and serial cardiac enzymes will be obtained. A echocardiogram will be performed to evaluate for heart failure and pulmonary hypertension. She will be continued with BiPAP on a as needed basis for acute dyspnea but will also receive morphine sulfate 2 mg IV every 1 hour on a as needed basis for acute dyspnea. 05/26/2019-on examination chest bilateral Decreased no wheezing no crepitations present. Pulse ox is 94% on room air. Plan is to repeat the chest x-ray today restart her Lasix 40 mg p.o. daily and repeat the labs tomorrow. CT of the chest was negative for PE. (2) Acute respiratory failure with hypoxia Is this a current diagnosis for this admission?: Yes Plan: Patient will be continued with O2 supplemental support utilizing nasal cannula and or noninvasive airway pressure devices such as BiPAP or CPAP as needed to maintain adequate oxygen saturation of greater than 93%. 05/26/2019-patient admitted with acute respiratory failure with hypoxia most likely secondary to CHF. Pulse ox is 94% on room air this morning. Plan is to continue the nebulizer treatments and diuretics. (3) Chronic obstructive pulmonary disease Qualifiers: COPD type: unspecified COPD Qualified Code(s): J44.9 - Chronic obstructive pulmonary disease, unspecified Is this a current diagnosis for this admission?: Yes Plan: Patient will be continued on a pulmonary regiment for COPD utilizing her usual medications or a reasonable formulary substitution there of. Her O2 saturation and respiratory status we monitored frequently throughout her hospital course. 05/26/2019-pulse ox is 94% on room air. On examination chest bilateral it was decreased no wheezing no crepitations are present. To put the patient on oxygen 2 L nasal cannula today. And to reevaluate pulse oxes on daily basis. (4) Hypertension Qualifiers: Hypertension type: essential hypertension Qualified Code(s): I10 - Essential (primary) hypertension Is this a current diagnosis for this admission?: Yes Plan: Patient's antihypertensive regiment will be continued at the present time however adjustments to the medications and/or dosages may be required in light of her possible heart failure. Her blood pressure be monitored frequently throughout her hospital course. 05/26/2019-blood pressure today is 130/60 plan is to restart her home medications and continue to closely monitor the blood pressure every shift. (5) Hypokalemia Is this a current diagnosis for this admission?: Yes Plan: Potassium repletion with IV and oral K. 05/26/2019-patient serum potassium is 3.5 today plan is to continue the potassium supplementations. - Time Time Spent with patient: 25-34 minutes Medications reviewed and adjusted accordingly: Yes Anticipated discharge: Home
[2019-05-26] MEDS: CLOPIDOGREL BISULFATE 75 MG TABLET PO SCH (11:50)
[2019-05-26] MEDS: FUROSEMIDE 40 MG TABLET PO SCH (11:50)
[2019-05-26] MEDS: FLUOXETINE HCL 20 MG CAPSULE PO SCH (11:51)
[2019-05-26] MEDS: CYANOCOBALAMIN (VITAMIN B-12) 1,000 MCG TABLET PO SCH (11:51)
[2019-05-26] MEDS ORDERED: POTASSIUM CHLORIDE 10 MEQ CAPSULE.ER PO SCH (12:00)
--- NOTE | 2019-05-26 13:45 | RADIOLOGY REPORT (SQ) ---
EXAM DESCRIPTION: CHEST 2 VIEWS COMPLETED DATE/TIME: 05/26/2019 11:08 am REASON FOR STUDY: chf COMPARISON: 05/25/2019 EXAM PARAMETERS: NUMBER OF VIEWS: two views TECHNIQUE: Digital Frontal and Lateral radiographic views of the chest acquired. RADIATION DOSE: NA LIMITATIONS: none FINDINGS: LUNGS AND PLEURA: Postop changes in the left lung. Subsegmental airspace disease in the l shasha bases. No effusions. MEDIASTINUM AND HILAR STRUCTURES: No masses or contour abnormalities. HEART AND VASCULAR STRUCTURES: Heart normal size. No evidence for failure. BONES: No acute findings. HARDWARE: Right-sided port. OTHER: No other significant finding. IMPRESSION: Basilar atelectasis. No infiltrate. TECHNICAL DOCUMENTATION: JOB ID: [id number] [employer]- All Rights Reserved Reading location - IP/workstation name: [email or web address]
[2019-05-26] MEDS ORDERED: ERGOCALCIFEROL (VITAMIN D2) 50000 UNIT (1.25 MG) CAPSULE PO SCH (16:00)
[2019-05-26 16:24] LABS: CREATINE KINASE MB 2.45 ng/mL (<4.55); TROPONIN I 0.059 ng/mL
[2019-05-26] MEDS: APIXABAN 5 MG TABLET PO SCH (17:16)
--- NOTE | 2019-05-26 19:10 | EKG REPORT ---
SEVERITY:- ABNORMAL ECG - SINUS RHYTHM ABNORMAL T, PROBABLE ISCHEMIA, WIDESPREAD PROLONGED QT INTERVAL : Confirmed by: Victoria Vigil MD 26-May-2019 19:09:40
[2019-05-26] MEDS: ATORVASTATIN CALCIUM 20 MG TABLET PO SCH (21:24)
[2019-05-27] MEDS: ACETAMINOPHEN 325 MG TABLET PO PRN ×3 (00:17→20:49)
[2019-05-27 06:57] LABS: ABSOLUTE BASOPHILS # (AUTO) 0.1 10^3/uL (0.0-0.2); ABSOLUTE EOSINOPHILS # (AUTO) 0.1 10^3/uL (0.0-0.6); ABSOLUTE NEUT (AUTO) 12.4 10^3/uL (1.7-8.2); BASOPHILS % (AUTO) 0.4 % (0-2); EOSINOPHILS % (AUTO) 0.5 % (0-6); HEMATOCRIT 32.2 % (36.0-47.0); HEMOGLOBIN 10.5 g/dL (12.0-15.5); MEAN CORPUSCULAR HGB CONC 32.7 g/dL (32.0-36.0); MEAN CORPUSCULAR VOLUME 89 fl (80-97); MONOCYTES % (AUTO) 6.3 % (3-13); PLATELET COUNT 299 10^3/uL (150-450); RED BLOOD COUNT 3.63 10^6/uL (3.72-5.28); RED CELL DISTRIBUTION WIDTH 15.1 % (11.5-14.0); SEGMENTED NEUTROPHILS % (AUTO) 79.8 % (42-78); TOTAL CELLS COUNTED % (AUTO) 100 %; WHITE BLOOD COUNT 15.6 10^3/uL (4.0-10.5)
[2019-05-27 07:18] LABS: ANION GAP 5 (5-19); BLOOD UREA NITROGEN 16 mg/dL (7-20); CALCIUM 8.7 mg/dL (8.4-10.2); CARBON DIOXIDE 28 mmol/L (22-30); CHLORIDE 107 mmol/L (98-107); GLUCOSE 98 mg/dL (75-110); POTASSIUM 3.5 mmol/L (3.6-5.0)
[2019-05-27] MEDS: IPRATROPIUM BROMIDE 0.02% NEB 0.5 MG/2.5 ML AMPUL NEB SCH ×3 (08:12→23:17)
[2019-05-27] MEDS: LEVALBUTEROL HCL NEB 1.25 MG/3 ML AMPUL NEB SCH ×3 (08:12→23:16)
--- NOTE | 2019-05-27 11:07 | PDOC PROGRESS REPORT ---
Subjective Progress Note for:: 05/27/19 Subjective:: 58 year old female who presented to the emergency room via EMS with acute dyspnea. She admits that while driving home last evening she suddenly developed severe dyspnea requiring her to summon EMS for help. She admits an associated nonproductive cough, nausea and diaphoresis. She denies other associated or accompanying symptoms. She admits prior similar symptoms with a hospitalization 1 month ago in [facility] where she was treated for an exace rbation of COPD. She has not identified any aggravating or ameliorating factors for her acute dyspnea. EMS found the patient to be hypoxic and having significant work of breathing and thus treated her with nebulizer treatments and intravenous steroids. Upon arrival to the emergency room patient was continued on nebulizer therapy and was eventually converted to BiPAP due to her severe work of breathing. She improved gradually over her ER stay and at the present time does not require BiPAP. Patient's ER laboratory and x-ray evaluation revealed possible early pulmonary edema. Her BNP was elevated at 1650, her potassium was low at 2.8 and her white blood count was elevated at 12,500 after having received Solu-Medrol. Patient was subsequently admitted to the hospital for further evaluation and treatment. 05/26/2019-pulse ox is 94% room air today. Patient is still shortness of breath on talking. Plan to put her on 2 L oxygen nasal cannula and restart her home medications. Plan is also started on Lasix 40 mg p.o. daily and repeat the chest x-ray today. 05/27/2019-patient is looking much better. Afebrile. No acute events in the last 24 hours. Pulse oxes are in the upper 90s on room air. Able to communicate without any respiratory distress or shortness of breath. Only abnor mality noticed his WBC count went up to 15,600. CT scan of the chest done at the time of admission suggestive of mild alveolar edema versus infiltrates. To start her on IV Rocephin 2 g daily and did to check a urine cultures and blood cultures today and continue the other management. pt is also given the history of lung cancer with surgeries in both lungs. Reason For Visit: ACUTE PULMONARY EDEMA, ACUTE RESPIRATORY FAILURE Physical Exam Vital Signs: Temp Pulse Resp BP Pulse Ox 98.3 F 66 16 143/62 H 94 05/27/19 07:25 05/27/19 08:00 05/27/19 08:00 05/27/19 07:25 05/27/19 08:00 Intake & Output 05/26/19 05/27/19 05/28/19 06:59 06:59 06:59 Intake Total 1420 1456 Output Total 50 380 Balance 1370 1076 Weight 72.6 kg 74 kg General appearance: PRESENT: no acute distress, cooperative Head exam: PRESENT: atraumatic Eye exam: PRESENT: PERRLA Ear exam: PRESENT: normal external ear exam Mouth exam: PRESENT: neck supple Neck exam: ABSENT: carotid bruit, JVD, lymphadenopathy, thyromegaly Respiratory exam: PRESENT: decreased breath sounds Cardiovascular exam: PRESENT: RRR. ABSENT: diastolic murmur, rubs, systolic murmur GI/Abdominal exam: PRESENT: normal bowel sounds, soft. ABSENT: distended, guarding, mass, organolmegaly, rebound, tenderness Rectal exam: PRESENT: deferred Extremities exam: PRESENT: full ROM. ABSENT: calf tenderness, clubbing, pedal edema Neurological exam: PRESENT: alert, awake, oriented to person, oriented to place, oriented to time, oriented to situation, CN II-XII grossly intact. ABSENT: motor sensory deficit Psychiatric exam: PRESENT: appropriate affect, normal mood. ABSENT: homicidal ideation, suicidal ideation Skin exam: PRESENT: dry, intact, warm. ABSENT: cyanosis, rash Results Laboratory Results: 05/27/19 06:05 05/27/19 06:05 05/27/19 05/27/19 06:05 06:05 WBC 15.6 H RBC 3.63 L Hgb 10.5 L Hct 32.2 L MCV 89 MCH 29.0 MCHC 32.7 RDW 15.1 H Plt Count 299 Seg Neutrophils % 79.8 H Sodium 140.2 Potassium 3.5 L Chloride 107 Carbon Dioxide 28 Anion Gap 5 BUN 16 Creatinine 0.69 Est GFR ( Amer) > 60 Glucose 98 Calcium 8.7 Magnesium 2.2 05/25/19 05/25/19 05/26/19 21:46 21:46 03:45 Creatine Kinase 55 80 CK-MB (CK-2) 0.62 Troponin I 0.019 NT-Pro-B Natriuret Pep 1820 H 05/26/19 05/26/19 05/26/19 03:45 06:10 09:59 Creatine Kinase 111 CK-MB (CK-2) 1.92 Troponin I 0.142 NT-Pro-B Natriuret Pep 2290 H 05/26/19 05/26/19 05/26/19 09:59 15:35 15:35 Creatine Kinase 114 CK-MB (CK-2) 2.70 2.45 Troponin I 0.083 0.059 NT-Pro-B Natriuret Pep Impressions: Chest/Abdomen CTA 05/25/19 22:03 IMPRESSION:No evidence of pulmonary embolus Prominent pulmonary arteries suggesting hypertension Emphysema Mixed alveolar and interstitial infiltrates predominantly in the lung bases. These are nonspecific but may reflect developing edema. Chest X-Ray 05/26/19 00:00 IMPRESSION: Basilar atelectasis. No infiltrate. Assessment and Plan - Diagnosis (1) Acute pulmonary edema Is this a current diagnosis for this admission?: Yes Plan: Patient will be admitted and serial cardiac enzymes will be obtained. A echocardiogram will be performed to evaluate for heart failure and pulmonary hypertension. She will be continued with BiPAP on a as needed basis for acute dyspnea but will also receive morphine sulfate 2 mg IV every 1 hour on a as needed basis for acute dyspnea. 05/26/2019-on examination chest bilateral Decreased no wheezing no crepitations present. Pulse ox is 94% on room air. Plan is to repeat the chest x-ray today restart her Lasix 40 mg p.o. daily and repeat the labs tomorrow. CT of the chest was negative for PE. 05/27/2019-on examination chest bilateral entry was decreased no wheezing no crepitations are present. Pulse ox is 93 to 94% on room air. Plan is to repeat the chest x-ray tomorrow and continue the nebulizer treatments and started on IV Rocephin 2 g daily today. (2) Acute respiratory failure with hypoxia Is this a current diagnosis for this admission?: Yes Plan: Patient will be continued with O2 supplemental support utilizing nasal cannula and or noninvasive airway pressure devices such as BiPAP or CPAP as needed to maintain adequate oxygen saturation of greater than 93%. 05/26/2019-patient admitted with acute respiratory failure with hypoxia most li roderick secondary to CHF. Pulse ox is 94% on room air this morning. Plan is to continue the nebulizer treatments and diuretics. 05/27/2019-patient admitted with acute respiratory failure with hypoxia she has history of lung cancer with surgeries on lung both lung monzon as per the patient she has lobectomy was done on the right side. Pulse ox is 93 to 94% room air but her WBC count went up to 15,600 patient is not on steroids. to start on IV antibiotics today. (3) Chronic obstructive pulmonary disease Qualifiers: COPD type: unspecified COPD Qualified Code(s): J44.9 - Chronic obstructive pulmonary disease, unspecified Is this a current diagnosis for this admission?: Yes (4) Hypertension Qualifiers: Hypertension type: essential hypertension Qualified Code(s): I10 - Essential (primary) hypertension Is this a current diagnosis for this admission?: Yes Plan: Patient's antihypertensive regiment will be continued at the present time however adjustments to the medications and/or dosages may be required in light of her possible heart failure. Her blood pressure be monitored frequently throughout her hospital course. 05/26/2019-blood pressure today is 130/60 plan is to restart her home medications and continue to closely monitor the blood pressure every shift. 05/27/2019-blood pressure today is 132/60 stable. Plan is to continue the present management. (5) Hypokalemia Is this a current diagnosis for this admission?: Yes Plan: Potassium repletion with IV and oral K. 05/26/2019-patient serum potassium is 3.5 today plan is to continue the potassium supplementations. 05/27/2019-serum potassium today 3.5 patient is receiving potassium supplementations on daily basis. - Time Time Spent with patient: 25-34 minutes Medications reviewed and adjusted accordingly: Yes Anticipated discharge: Home
[2019-05-27] MEDS: DOCUSATE SODIUM 100 MG CAPSULE PO SCH ×2 (12:09→17:54)
[2019-05-27] MEDS: FLUOXETINE HCL 20 MG CAPSULE PO SCH (12:16)
[2019-05-27] MEDS: FAMOTIDINE 20 MG TABLET PO SCH ×2 (12:17→21:07)
[2019-05-27] MEDS: POTASSIUM CHLORIDE 10 MEQ CAPSULE.ER PO SCH (12:17)
[2019-05-27] MEDS: CLOPIDOGREL BISULFATE 75 MG TABLET PO SCH (12:17)
[2019-05-27] MEDS: FUROSEMIDE 40 MG TABLET PO SCH (12:17)
[2019-05-27] MEDS: APIXABAN 5 MG TABLET PO SCH ×2 (12:17→17:54)
[2019-05-27] MEDS: CYANOCOBALAMIN (VITAMIN B-12) 1,000 MCG TABLET PO SCH (12:18)
[2019-05-27] MEDS: CEFTRIAXONE 2 GM/D5W RTU 2 GM/50 ML RTUPB IV SCH (12:18)
[2019-05-27] MEDS: LISINOPRIL 10 MG TABLET PO SCH (12:18)
[2019-05-27] MEDS: METOPROLOL SUCCINATE 50 MG TAB.SR.24H PO SCH (12:19)
--- NOTE | 2019-05-27 15:18 | RADIOLOGY REPORT (SQ) ---
EXAM DESCRIPTION: CHEST SINGLE VIEW COMPLETED DATE/TIME: 05/27/2019 2:29 pm REASON FOR STUDY: shortness of breath COMPARISON: 05/26/2019 NUMBER OF VIEWS: One view. TECHNIQUE: Single frontal radiographic image of the chest acquired. LIMITATIONS: None. FINDINGS: LUNGS AND PLEURA: Postsurgical changes in the left lung. Blunting of the left costophreni c angle. No consolidation. MEDIASTINUM AND HEART: Stable heart size and mediastinal structures. SUPPORT DEVICES: Appropriate location without change. BONY STRUCTURES: No acute findings. HARDWARE: None. OTHER: No other significant finding. IMPRESSION: STABLE APPEARANCE OF THE CHEST. SUPPORT DEVICES UNCHANGED. Reading location - IP/workstation name: [email or web address]
[2019-05-27] MEDS: ATORVASTATIN CALCIUM 20 MG TABLET PO SCH (21:07)
[2019-05-27] MEDS ORDERED: DIPHENHYDRAMINE HCL 50 MG/ML VIAL ONE (23:52)
[2019-05-28] MEDS ORDERED: DIPHENHYDRAMINE HCL 50 MG/ML VIAL IV ONE (00:15)
[2019-05-28 01:00] LABS: ARTERIAL BLOOD BASE EXCESS 3.7 mmol/L; ARTERIAL BLOOD HCO3 24.7 mmol/L (20-24); ARTERIAL BLOOD O2 SATURATION 98.4 % (94-98); ARTERIAL BLOOD PCO2 26.6 mmHg (35-45); ARTERIAL BLOOD PH 7.59 (7.35-7.45); ARTERIAL BLOOD PO2 99.8 mmHg (80-100); ARTERIAL BLOOD TOTAL CO2 25.5 mmol/L (21-25)
[2019-05-28 01:05] LABS: ABSOLUTE BASOPHILS # (AUTO) 0.1 10^3/uL (0.0-0.2); ABSOLUTE EOSINOPHILS # (AUTO) 0.4 10^3/uL (0.0-0.6); ABSOLUTE LYMPHOCYTES (AUTO) 2.2 10^3/uL (0.5-4.7); ABSOLUTE MONOCYTES (AUTO) 0.9 10^3/uL (0.1-1.4); BASOPHILS % (AUTO) 0.8 % (0-2); EOSINOPHILS % (AUTO) 3.4 % (0-6); HEMATOCRIT 34.4 % (36.0-47.0); HEMOGLOBIN 11.4 g/dL (12.0-15.5); LYMPHOCYTES % (AUTO) 18.7 % (13-45); MEAN CORPUSCULAR HEMOGLOBIN 29.3 pg (27.0-33.4); MEAN CORPUSCULAR HGB CONC 33.2 g/dL (32.0-36.0); MEAN CORPUSCULAR VOLUME 88 fl (80-97); MONOCYTES % (AUTO) 7.8 % (3-13); PLATELET COUNT 310 10^3/uL (150-450); RED BLOOD COUNT 3.89 10^6/uL (3.72-5.28); RED CELL DISTRIBUTION WIDTH 15.1 % (11.5-14.0); SEGMENTED NEUTROPHILS % (AUTO) 69.3 % (42-78); TOTAL CELLS COUNTED % (AUTO) 100 %; WHITE BLOOD COUNT 11.5 10^3/uL (4.0-10.5)
[2019-05-28 01:05] LABS: ARTERIAL BLOOD FIO2 1.5L
[2019-05-28 01:14] LABS: INTERNATIONAL RATION (INR) 1.13; PROTHROMBIN TIME 14.6 SEC (11.4-15.4)
[2019-05-28 01:15] LABS: PARTIAL THROMBOPLASTIN TIME 30.4 SEC (23.5-35.8)
[2019-05-28 01:18] LABS: ALBUMIN 3.2 g/dL (3.5-5.0); ALKALINE PHOSPHATASE 80 U/L (38-126); ANION GAP 9 (5-19); ASPARTATE AMINO TRANSFERASE 20 U/L (14-36); BILIRUBIN,DIRECT 0.2 mg/dL (0.0-0.4); BILIRUBIN,TOTAL 0.5 mg/dL (0.2-1.3); BLOOD UREA NITROGEN 14 mg/dL (7-20); CALCIUM 8.7 mg/dL (8.4-10.2); CARBON DIOXIDE 26 mmol/L (22-30); CHLORIDE 108 mmol/L (98-107); CREATINE KINASE 59 U/L (30-135); GLUCOSE 99 mg/dL (75-110); POTASSIUM 3.2 mmol/L (3.6-5.0); TOTAL PROTEIN 5.7 g/dL (6.3-8.2)
[2019-05-28 01:38] LABS: CREATINE KINASE MB 1.14 ng/mL (<4.55); TROPONIN I 0.029 ng/mL
[2019-05-28] MEDS ORDERED: CHLORPROMAZINE HCL INJ 25 MG/1 ML AMPULE IV PRN (02:51)
[2019-05-28] MEDS: POTASSI CL 20 MEQ/50 ML RIDER 20 MEQ/50 ML RTUPB IV SCH ×2 (03:58→06:06)
--- NOTE | 2019-05-28 04:12 | Progress Note ---
Provider Note Provider Note: Critical care: Rapid response 05/28/2019 00:22 Patient was noted by nursing staff to have poor responsiveness and to not be following verbal commands and thus a rapid response was called. Patient earlier had experienced a flushing sensation and thought she might be having an allergy to IV hydralazine given for hypertension. Patient continued to be somewhat agitated even after receiving 50 mg of Benadryl IV for the potential allergy. She was in the process of receiving Valium 10 mg IV when her symptoms developed. Patient was also noted to have a new complaint of left arm numbness and nonrhythmic total body spasms occurring 2-4 times per minute. Patient's EKG was obtained and cardiac enzymes were drawn with an order for every 6 hours cardiac enzymes x3. EKG showed no acute changes and no evidence of acute ischemia or injury. A comprehensive metabolic profile and CBC were also obtained which were unremarkable with the exception of hypokalemia at 3.2. Patient was given a K rider of 40 milliequivalents and plan to use chlorpromazine 25 mg IV every 8 hours on an as needed basis for body spasms. Patient was observed several times after the initial encounter and was found to show significant improvement without actually having received any of the ordered treatment. The likelihood that this was primarily anxiety is high and will be considered for any further treatment. End critical care: 05/28/2019 00:59
[2019-05-28 07:03] LABS: ABSOLUTE BASOPHILS # (AUTO) 0.1 10^3/uL (0.0-0.2); ABSOLUTE EOSINOPHILS # (AUTO) 0.4 10^3/uL (0.0-0.6); ABSOLUTE MONOCYTES (AUTO) 0.9 10^3/uL (0.1-1.4); ABSOLUTE NEUT (AUTO) 6.5 10^3/uL (1.7-8.2); BASOPHILS % (AUTO) 0.8 % (0-2); EOSINOPHILS % (AUTO) 4.3 % (0-6); HEMATOCRIT 32.2 % (36.0-47.0); HEMOGLOBIN 10.9 g/dL (12.0-15.5); LYMPHOCYTES % (AUTO) 20.1 % (13-45); MEAN CORPUSCULAR HGB CONC 33.9 g/dL (32.0-36.0); MEAN CORPUSCULAR VOLUME 89 fl (80-97); MONOCYTES % (AUTO) 9.5 % (3-13); PLATELET COUNT 301 10^3/uL (150-450); RED BLOOD COUNT 3.64 10^6/uL (3.72-5.28); RED CELL DISTRIBUTION WIDTH 15.3 % (11.5-14.0); SEGMENTED NEUTROPHILS % (AUTO) 65.3 % (42-78); TOTAL CELLS COUNTED % (AUTO) 100 %; WHITE BLOOD COUNT 9.9 10^3/uL (4.0-10.5)
--- NOTE | 2019-05-28 07:16 | EKG REPORT ---
SEVERITY:- ABNORMAL ECG - SINUS TACHYCARDIA LEFT ATRIAL ABNORMALITY NONSPECIFIC T ABNORMALITIES, DIFFUSE LEADS ST ELEVATION, CONSIDER ANTERIOR INJURY BORDERLINE PROLONGED QT INTERVAL : Confirmed by: Davion Knight MD 28-May-2019 07:15:33
[2019-05-28 07:24] LABS: ALBUMIN 2.9 g/dL (3.5-5.0); ALKALINE PHOSPHATASE 72 U/L (38-126); ANION GAP 5 (5-19); ASPARTATE AMINO TRANSFERASE 19 U/L (14-36); BILIRUBIN,DIRECT 0.1 mg/dL (0.0-0.4); BILIRUBIN,TOTAL 0.5 mg/dL (0.2-1.3); BLOOD UREA NITROGEN 11 mg/dL (7-20); CARBON DIOXIDE 28 mmol/L (22-30); CHLORIDE 108 mmol/L (98-107); GLUCOSE 81 mg/dL (75-110); POTASSIUM 3.9 mmol/L (3.6-5.0); TOTAL PROTEIN 5.2 g/dL (6.3-8.2)
[2019-05-28] MEDS: LEVALBUTEROL HCL NEB 1.25 MG/3 ML AMPUL NEB SCH ×3 (07:46→23:26)
[2019-05-28] MEDS: IPRATROPIUM BROMIDE 0.02% NEB 0.5 MG/2.5 ML AMPUL NEB SCH ×3 (07:46→23:25)
[2019-05-28] MEDS: DOCUSATE SODIUM 100 MG CAPSULE PO SCH ×2 (10:02→17:12)
[2019-05-28] MEDS: CEFTRIAXONE 2 GM/D5W RTU 2 GM/50 ML RTUPB IV SCH (10:06)
[2019-05-28] MEDS: POTASSIUM CHLORIDE 10 MEQ CAPSULE.ER PO SCH (10:06)
[2019-05-28] MEDS: FLUOXETINE HCL 20 MG CAPSULE PO SCH (10:07)
[2019-05-28] MEDS: CLOPIDOGREL BISULFATE 75 MG TABLET PO SCH (10:07)
[2019-05-28] MEDS: APIXABAN 5 MG TABLET PO SCH ×2 (10:07→17:15)
[2019-05-28] MEDS: FUROSEMIDE 40 MG TABLET PO SCH (10:07)
[2019-05-28] MEDS: CYANOCOBALAMIN (VITAMIN B-12) 1,000 MCG TABLET PO SCH (10:07)
[2019-05-28] MEDS: LISINOPRIL 10 MG TABLET PO SCH (10:07)
[2019-05-28] MEDS: FAMOTIDINE 20 MG TABLET PO SCH ×2 (10:07→21:16)
[2019-05-28] MEDS ORDERED: PROMETHAZINE HCL INJ 25 MG/1 ML VIAL IV PRN (10:30)
--- NOTE | 2019-05-28 13:54 | PDOC PROGRESS REPORT ---
Subjective Progress Note for:: 05/28/19 Subjective:: 58 year old female who presented to the emergency room via EMS with acute dyspnea. She admits that while driving home last evening she suddenly developed severe dyspnea requiring her to summon EMS for help. She admits an associated nonproductive cough, nausea and diaphoresis. She denies other associated or accompanying symptoms. She admits prior similar symptoms with a hospitalization 1 month ago in [facility] where she was treated for an exace rbation of COPD. She has not identified any aggravating or ameliorating factors for her acute dyspnea. EMS found the patient to be hypoxic and having significant work of breathing and thus treated her with nebulizer treatments and intravenous steroids. Upon arrival to the emergency room patient was continued on nebulizer therapy and was eventually converted to BiPAP due to her severe work of breathing. She improved gradually over her ER stay and at the present time does not require BiPAP. Patient's ER laboratory and x-ray evaluation revealed possible early pulmonary edema. Her BNP was elevated at 1650, her potassium was low at 2.8 and her white blood count was elevated at 12,500 after having received Solu-Medrol. Patient was subsequently admitted to the hospital for further evaluation and treatment. 05/26/2019-pulse ox is 94% room air today. Patient is still shortness of breath on talking. Plan to put her on 2 L oxygen nasal cannula and restart her home medications. Plan is also started on Lasix 40 mg p.o. daily and repeat the chest x-ray today. 05/27/2019-patient is looking much better. Afebrile. No acute events in the last 24 hours. Pulse oxes are in the upper 90s on room air. Able to communicate without any respiratory distress or shortness of breath. Only abnor mality noticed his WBC count went up to 15,600. CT scan of the chest done at the time of admission suggestive of mild alveolar edema versus infiltrates. To start her on IV Rocephin 2 g daily and did to check a urine cultures and blood cultures today and continue the other management. pt is also given the history of lung cancer with surgeries in both lungs. 05/[id number]-old female admitted with acute shortness of breath. Rapid response was called last night after she received hydralazine for high blood pressure she started complaining of present in the throat she was given Benadryl then she was given Valium she was unresponsive after the rapid response was called patient was quickly recovered after that no acute events noticed. At this morning patient is comfortable in the bed communicating well not in distress. Reason For Visit: ACUTE PULMONARY EDEMA, ACUTE RESPIRATORY FAILURE Physical Exam Vital Signs: Temp Pulse Resp BP Pulse Ox 98.1 F 73 20 144/67 H 97 05/28/19 11:03 05/28/19 11:03 05/28/19 11:03 05/28/19 11:03 05/28/19 11:03 Intake & Output 05/27/19 05/28/19 05/29/19 06:59 06:59 06:59 Intake Total 1456 1396 Output Total 380 1600 Balance 1076 -204 Weight 74 kg 74 kg General appearance: PRESENT: no acute distress, obese Head exam: PRESENT: atraumatic Eye exam: PRESENT: PERRLA Ear exam: PRESENT: normal external ear exam Mouth exam: PRESENT: neck supple Teeth exam: PRESENT: poor dentation Neck exam: ABSENT: carotid bruit, JVD, lymphadenopathy, thyromegaly Respiratory exam: PRESENT: decreased breath sounds Cardiovascular exam: PRESENT: RRR. ABSENT: diastolic murmur, rubs, systolic murmur Pulses: PRESENT: normal dorsalis pedis pul GI/Abdominal exam: PRESENT: normal bowel sounds, soft. ABSENT: distended, guarding, mass, organolmegaly, rebound, tenderness Extremities exam: PRESENT: full ROM. ABSENT: calf tenderness, clubbing, pedal edema Neurological exam: PRESENT: alert, awake, oriented to person, oriented to place, oriented to time, oriented to situation, CN II-XII grossly intact. ABSENT: motor sensory deficit Psychiatric exam: PRESENT: appropriate affect, normal mood. ABSENT: homicidal ideation, suicidal ideation Results Laboratory Results: 05/28/19 06:23 05/28/19 06:23 05/28/19 05/28/19 05/28/19 00:30 00:30 00:45 WBC 11.5 H RBC 3.89 Hgb 11.4 L Hct 34.4 L MCV 88 MCH 29.3 MCHC 33.2 RDW 15.1 H Plt Count 310 Seg Neutrophils % 69.3 Carbonic Acid 0.80 L HCO3/H2CO3 Ratio 30:1 ABG pH 7.59 H ABG pCO2 26.6 L ABG pO2 99.8 ABG HCO3 24.7 H ABG O2 Saturation 98.4 H ABG Base Excess 3.7 FiO2 1.5L Sodium 142.6 Potassium 3.2 L Chloride 108 H Carbon Dioxide 26 Anion Gap 9 BUN 14 Creatinine 0.69 Est GFR ( Amer) > 60 Glucose 99 Calcium 8.7 Magnesium 1.9 Total Bilirubin 0.5 AST 20 Alkaline Phosphatase 80 Total Protein 5.7 L Albumin 3.2 L 05/28/19 05/28/19 06:23 06:23 WBC 9.9 RBC 3.64 L Hgb 10.9 L Hct 32.2 L MCV 89 MCH 30.0 MCHC 33.9 RDW 15.3 H Plt Count 301 Seg Neutrophils % 65.3 Carbonic Acid HCO3/H2CO3 Ratio ABG pH ABG pCO2 ABG pO2 ABG HCO3 ABG O2 Saturation ABG Base Excess FiO2 Sodium 141.2 Potassium 3.9 Chloride 108 H Carbon Dioxide 28 Anion Gap 5 BUN 11 Creatinine 0.58 Est GFR ( Amer) > 60 Glucose 81 Calcium 8.0 L Magnesium 2.0 Total Bilirubin 0.5 AST 19 Alkaline Phosphatase 72 Total Protein 5.2 L Albumin 2.9 L 05/25/19 05/25/19 05/26/19 21:46 21:46 03:45 Creatine Kinase 55 80 CK-MB (CK-2) 0.62 Troponin I 0.019 NT-Pro-B Natriuret Pep 1820 H 05/26/19 05/26/19 05/26/19 03:45 06:10 09:59 Creatine Kinase 111 CK-MB (CK-2) 1.92 Troponin I 0.142 NT-Pro-B Natriuret Pep 2290 H 05/26/19 05/26/19 05/26/19 09:59 15:35 15:35 Creatine Kinase 114 CK-MB (CK-2) 2.70 2.45 Troponin I 0.083 0.059 NT-Pro-B Natriuret Pep 05/28/19 05/28/19 00:30 00:30 Creatine Kinase 59 CK-MB (CK-2) 1.14 Troponin I 0.029 NT-Pro-B Natriuret Pep Impressions: Chest/Abdomen CTA 05/25/19 22:03 IMPRESSION:No evidence of pulmonary embolus Prominent pulmonary arteries suggesting hypertension Emphysema Mixed alveolar and interstitial infiltrates predominantly in the lung bases. These are nonspecific but may reflect developing edema. Chest X-Ray 05/27/19 11:15 IMPRESSION: STABLE APPEARANCE OF THE CHEST. SUPPORT DEVICES UNCHANGED. Assessment and Plan - Diagnosis (1) Acute pulmonary edema Is this a current diagnosis for this admission?: Yes Plan: Patient will be admitted and serial cardiac enzymes will be obtained. A echocardiogram will be performed to evaluate for heart failure and pulmonary hypertension. She will be continued with BiPAP on a as needed basis for acute dyspnea but will also receive morphine sulfate 2 mg IV every 1 hour on a as needed basis for acute dyspnea. 05/26/2019-on examination chest bilateral Decreased no wheezing no crepitations present. Pulse ox is 94% on room air. Plan is to repeat the chest x-ray today restart her Lasix 40 mg p.o. daily and repeat the labs tomorrow. CT of the chest was negative for PE. 05/27/2019-on examination chest bilateral entry was decreased no wheezing no crepitations are present. Pulse ox is 93 to 94% on room air. Plan is to repeat the chest x-ray tomorrow and continue the nebulizer treatments and started on IV Rocephin 2 g daily today. 05/28/2019-chest x-ray done yesterday did not show any evidence of anemia or pleural effusions. Patient is on Lasix. Acute pulmonary edema resolved. (2) Acute respiratory failure with hypoxia Is this a current diagnosis for this admission?: Yes Plan: Patient will be continued with O2 supplemental support utilizing nasal cannula and or noninvasive airway pressure devices such as BiPAP or CPAP as needed to maintain adequate oxygen saturation of greater than 93%. 05/26/2019-patient admitted with acute respiratory failure with hypoxia most likely secondary to CHF. Pulse ox is 94% on room air this morning. Plan is to continue the nebulizer treatments and diuretics. 05/27/2019-patient admitted with acute respiratory failure with hypoxia she has history of lung cancer with surgeries on lung both lung monzon as per the patient she has lobectomy was done on the right side. Pulse ox is 93 to 94% room air but her WBC count went up to 15,600 patient is not on steroids. to start on IV antibiotics today. 05/28/2019-patient admitted with acute respiratory failure with hypoxia the impression initially is a that she has pneumonia or flash pulmonary edema. Chest x-ray done yesterday is negative for acute pathology. Patient is presently on Rocephin 2 g IV daily and pulse ox is 98% on room air. Cultures are negative so far. (3) Chronic obstructive pulmonary disease Qualifiers: COPD type: unspecified COPD Qualified Code(s): J44.9 - Chronic obstructive pulmonary disease, unspecified Is this a current diagnosis for this admission?: Yes Plan: Patient will be continued on a pulmonary regiment for COPD utilizing her usual medications or a reasonable formulary substitution there of. Her O2 saturation and respiratory status we monitored frequently throughout her hospital course. 05/26/2019-pulse ox is 94% on room air. On examination chest bilateral it was decreased no wheezing no crepitations are present. To put the patient on oxygen 2 L nasal cannula today. And to reevaluate pulse oxes on daily basis. 05/28/ Pulse ox is 98% on room air. On examination chest bilateral entry was decreased no wheezing no crepitations are present. (4) Hypertension Qualifiers: Hypertension type: essential hypertension Qualified Code(s): I10 - Essential (primary) hypertension Is this a current diagnosis for this admission?: Yes Plan: Patient's antihypertensive regiment will be continued at the present time however adjustments to the medications and/or dosages may be required in light of her possible heart failure. Her blood pressure be monitored frequently throughout her hospital course. 05/26/2019-blood pressure today is 130/60 plan is to restart her home medications and continue to closely monitor the blood pressure every shift. 05/27/2019-blood pressure today is 132/60 stable. Plan is to continue the present management. 05/28/2019-blood pressure today is 120/50. Stable. Plan is to continue the present management. (5) Hypokalemia Is this a current diagnosis for this admission?: Yes Plan: Potassium repletion with IV and oral K. 05/26/2019-patient serum potassium is 3.5 today plan is to continue the potassium supplementations. 05/27/2019-serum potassium today 3.5 patient is receiving potassium supplementations on daily basis. 05/28/2019-'s patient serum potassium is 3.9 hyperkalemia is resolved. - Time Time Spent with patient: 25-34 minutes Medications reviewed and adjusted accordingly: Yes Anticipated discharge: Home
[2019-05-28] MEDS: ACETAMINOPHEN 325 MG TABLET PO PRN (15:14)
--- NOTE | 2019-05-28 16:13 | XCELERA REPORT ---
[address] [address] Transthoracic Echocardiogram Report Name: JONNATHAN WEBER Age: 58 yrs Gender: Female : 1960 Patient Status: Inpatient Patient Location: [address] [place] [address] Study Date: 05/28/2019 10:11 AM Height: 61 in Weight: 155 lb BSA: 1.7 m2 Procedure: A two-dimensional transthoracic echocardiogram with color flow and Doppler was performed. The study was technically difficult with many images being suboptimal in quality. The study was technically limited with all images being suboptimal in quality. Reason For Study: Acute pulmonary edema, Pulmonary hypertension, CHF History: Acute pulmonary edema, Pulmonary hypertension, CHF. Ordering Physician: VANDANA HANKS Performed By: Loretta Wheeler Interpretation Summary The left ventricle is normal in size. There is normal left ventricular wall thickness. LV EF is 65% The left ventricular ejection fraction is within normal limits. Doppler measurements suggest impaired left ventricular relaxation, which is associated with grade I/IV or mild diastolic dysfunction The left ventricular wall motion is normal. There is no thrombus. Cannot assess ASD,VSd , or PFO. The right ventricle is normal in size and function. The right ventricle is not well visualized secondary to technical limitations The right atrium is normal. The left atrial size is normal. There is no evidence of mitral valve prolapse. There is no vegetation seen on the mitral valve. There is no mitral valve stenosis. There is a trace amount of mitral regurgitation There is no aortic valve stenosis No aortic regurgitation is present. There is no tricuspid stenosis. There is a trace amount of tricuspid regurgitation Unable to calculate RVSP due to insufficient TR jet. There is no pulmonic valvular stenosis. There is no pulmonic valvular regurgitation. The aortic root is normal size. The inferior vena cava appeared normal and decreased > 50% with respiration (RAP 5-10 mmHg) There is no pericardial effusion. MMode/2D Measurements & Calculations RVDd: 3.1 cm LVIDd: 5.1 cm FS: 35.7 % Ao root diam: 3.4 cm IVSd: 0.98 cm LVIDs: 3.3 cm EDV(Teich): 122.4 ml Ao root area: 8.9 cm2 LVPWd: 1.0 cm ESV(Teich): 43.0 ml EF(Teich): 64.9 % Doppler Measurements & Calculations MV E max shaq: MV dec slope: Ao V2 max: LV V1 max P.8 cm/sec 325.2 cm/sec2 136.1 cm/sec 4.9 mmHg MV A max shaq: MV dec time: 0.24 sec Ao max PG: LV V1 max: 78.2 cm/sec 7.4 mmHg 111.1 cm/sec MV E/A: 0.98 PA V2 max: Pulm Sys Shaq: 97.8 cm/sec 78.8 cm/sec PA max P.8 mmHgPulm San Shaq: 77.0 cm/sec Pulm A Revs Shaq: 23.9 cm/sec Pulm A Revs Dur: 0.11 sec Pulm S/D: 1.0 Left Ventricle The left ventricle is normal in size. There is normal left ventricular wall thickness. LV EF is 65%. The left ventricular ejection fraction is within normal limits. Doppler measurements suggest impaired left ventricular relaxation, which is associated with grade I/IV or mild diastolic dysfunction. The left ventricular wall motion is normal. There is no thrombus. Cannot assess ASD,VSd , or PFO. Right Ventricle The right ventricle is normal in size and function. The right ventricle is not well visualized secondary to technical limitations. Atria The right atrium is normal. The left atrial size is normal. Mitral Valve There is no evidence of mitral valve prolapse. There is no vegetation seen on the mitral valve. There is no mitral valve stenosis. There is a trace amount of mitral regurgitation. Aortic Valve There is no aortic valve stenosis. No aortic regurgitation is present. Tricuspid Valve There is no tricuspid stenosis. There is a trace amount of tricuspid regurgitation. Unable to calculate RVSP due to insufficient TR jet. Pulmonic Valve There is no pulmonic valvular stenosis. There is no pulmonic valvular regurgitation. Great Vessels The aortic root is normal size. The inferior vena cava appeared normal and decreased > 50% with respiration (RAP 5-10 mmHg). Effusions There is no pericardial effusion. : VANDANA HANKS > Victoria Vigil
[2019-05-28] MEDS: ATORVASTATIN CALCIUM 20 MG TABLET PO SCH (21:16)
[2019-05-29 06:37] LABS: ABSOLUTE BASOPHILS # (AUTO) 0.1 10^3/uL (0.0-0.2); ABSOLUTE EOSINOPHILS # (AUTO) 0.5 10^3/uL (0.0-0.6); ABSOLUTE LYMPHOCYTES (AUTO) 1.5 10^3/uL (0.5-4.7); ABSOLUTE MONOCYTES (AUTO) 0.8 10^3/uL (0.1-1.4); ABSOLUTE NEUT (AUTO) 6.6 10^3/uL (1.7-8.2); BASOPHILS % (AUTO) 0.9 % (0-2); EOSINOPHILS % (AUTO) 5.2 % (0-6); HEMATOCRIT 32.8 % (36.0-47.0); LYMPHOCYTES % (AUTO) 16.2 % (13-45); MEAN CORPUSCULAR HEMOGLOBIN 29.7 pg (27.0-33.4); MEAN CORPUSCULAR HGB CONC 33.7 g/dL (32.0-36.0); MEAN CORPUSCULAR VOLUME 88 fl (80-97); MONOCYTES % (AUTO) 7.9 % (3-13); PLATELET COUNT 294 10^3/uL (150-450); RED BLOOD COUNT 3.72 10^6/uL (3.72-5.28); RED CELL DISTRIBUTION WIDTH 14.9 % (11.5-14.0); SEGMENTED NEUTROPHILS % (AUTO) 69.8 % (42-78); TOTAL CELLS COUNTED % (AUTO) 100 %; WHITE BLOOD COUNT 9.5 10^3/uL (4.0-10.5)
[2019-05-29 06:49] LABS: ALKALINE PHOSPHATASE 77 U/L (38-126); ANION GAP 5 (5-19); ASPARTATE AMINO TRANSFERASE 21 U/L (14-36); BILIRUBIN,DIRECT 0.3 mg/dL (0.0-0.4); BILIRUBIN,TOTAL 0.7 mg/dL (0.2-1.3); BLOOD UREA NITROGEN 11 mg/dL (7-20); CALCIUM 8.5 mg/dL (8.4-10.2); CARBON DIOXIDE 28 mmol/L (22-30); CHLORIDE 106 mmol/L (98-107); GLUCOSE 85 mg/dL (75-110); POTASSIUM 3.5 mmol/L (3.6-5.0); TOTAL PROTEIN 5.5 g/dL (6.3-8.2)
[2019-05-29] MEDS: IPRATROPIUM BROMIDE 0.02% NEB 0.5 MG/2.5 ML AMPUL NEB SCH (08:05)
[2019-05-29] MEDS: LEVALBUTEROL HCL NEB 1.25 MG/3 ML AMPUL NEB SCH (08:05)
[2019-05-29] MEDS ORDERED: METOPROLOL TARTRATE 50 MG TABLET PO SCH (10:00)
[2019-05-29] MEDS: FLUOXETINE HCL 20 MG CAPSULE PO SCH (11:01)
[2019-05-29] MEDS: POTASSIUM CHLORIDE 10 MEQ CAPSULE.ER PO SCH (11:01)
[2019-05-29] MEDS: FUROSEMIDE 40 MG TABLET PO SCH (11:02)
[2019-05-29] MEDS: CYANOCOBALAMIN (VITAMIN B-12) 1,000 MCG TABLET PO SCH (11:02)
[2019-05-29] MEDS: CLOPIDOGREL BISULFATE 75 MG TABLET PO SCH (11:03)
[2019-05-29] MEDS: FAMOTIDINE 20 MG TABLET PO SCH (11:03)
[2019-05-29] MEDS: APIXABAN 5 MG TABLET PO SCH (11:03)
[2019-05-29] MEDS: DOCUSATE SODIUM 100 MG CAPSULE PO SCH (11:13)
[2019-05-29] MEDS: LISINOPRIL 10 MG TABLET PO SCH (11:13)
[2019-05-29 14:37] VITALS: BP 119/56
--- NOTE | 2019-06-02 08:32 | PDOC DISCHARGE SUMMARY ---
General - Admit/Disc Date/PCP Admission Date/Primary Care Provider: 05/26/19 02:43 Discharge Date: 05/29/19 - Discharge Diagnosis (1) Acute pulmonary edema Is this a current diagnosis for this admission?: Yes Summary: Resolved. Patient presented to the emergency department by EMS for report of sudden onset difficulty breathing and was found to be hypoxic by EMS providers. Initial chest x-ray revealed possible early pulmonary edema and BNP was elevated to 1650. She is provided supplemental oxygen and BiPAP support. Patient was started on furosemide and follow-up chest x-ray revealed resolution of pulmonary edema. An echocardiogram was obtained; LVEF 65% with mild diastolic dysfunction, were unable to calculate her RVSP due to insufficient TR jet. Patient was placed on a cardiac diet and continued on metoprolol, lisinopril, furosemide, Plavix, Eliquis, and statin therapy. Her symptoms continue to improve and at time of discharge, patient was asymptomatic and maintaining oxygen saturations on room air. She is discharged home in stable condition with family members for support. She is advised to follow a cardiac diet and take her medications as prescribed. She is encouraged to weigh herself daily and to report any weight gain more than 2 pounds to her provider. She is instructed to follow-up with her primary provider within 1 week and to return to the emergency department as needed for concerning symptoms. (2) Acute respiratory failure with hypoxia Is this a current diagnosis for this admission?: Yes Summary: Resolved; secondary to pulmonary edema. Patient is now maintaining oxygen saturations on room air. (3) Chronic obstructive pulmonary disease Is this a current diagnosis for this admission?: Yes Summary: Stable and without exacerbation. Patient did initially require supplemental oxygen and BiPAP for pulmonary edema. She is now maintaining oxygen saturations on room air. (4) Hypertension Is this a current diagnosis for this admission?: Yes Summary: Normotensive. Pt is discharged on home dose metoprolol and furosemide. Have started her on lisinopril. Dietary compliance with cardiac diet encouraged. (5) Hypokalemia Is this a current diagnosis for this admission?: Yes Summary: Replete. - Additional Information Resuscitation Status: Full Code Discharge Diet: Cardiac Discharge Activity: Activity As Tolerated, Balance Activity w/Rest, Slowly Increase Activity Prescriptions: Lisinopril [Prinivil 10 mg Tablet] 10 mg PO DAILY #30 tablet Home Medications: Apixaban [Eliquis 5 mg Tablet] 5 mg PO BID 05/26/19 Clopidogrel Bisulfate [Plavix 75 mg Tablet] 75 mg PO DAILY 05/26/19 Cyanocobalamin (Vitamin B-12) [Vitamin B-12 1000 mcg Tablet] 1,000 mcg PO DAILY 05/26/19 Ergocalciferol (Vitamin D2) [Drisdol 50,000 unit (1.25MG) Capsule] 50,000 unit PO SA@1000 05/26/19 Fluoxetine HCl [Prozac 20 mg Capsule] 60 mg PO DAILY 05/26/19 Furosemide [Lasix 40 mg Tablet] 40 mg PO QAM 05/26/19 Metoprolol Succinate [Toprol Xl 50 mg Tab.sr] 50 mg PO DAILY 05/26/19 Potassium Chloride [Klor-Con 10 Meq Capsule ER] 20 meq PO DAILY 05/26/19 Rosuvastatin Calcium [Crestor 10 mg Tablet] 10 mg PO QHS 05/26/19 Acetaminophen [Tylenol 325 mg Tablet] 650 mg PO Q4HP PRN tablet 05/29/19 Lisinopril [Prinivil 10 mg Tablet] 10 mg PO DAILY #30 tablet 05/29/19 History of Present Illness History of Present Illness: Per H&P by Dr. Ruano: JONNATHAN WEBER is a 58 year old female who presented to the emergency room via EMS with acute dyspnea. She admits that while driving home last evening she suddenly developed severe dyspnea requiring her to summon EMS for help. She admits an associated nonproductive cough, nausea and diaphoresis. She denies other associated or accompanying symptoms. She admits prior similar symptoms with a hospitalization 1 month ago in [facility] where she was treated for an exacerbation of COPD. She has not identified any aggravating or ameliorating factors for her acute dyspnea. EMS found the patient to be hypoxic and having significant work of breathing and thus treated her with nebulizer treatments and intravenous steroids. Upon arrival to the emergency room patient was continued on nebulizer therapy and was eventually converted to BiPAP due to her severe work of breathing. She improved gradually over her ER stay and at the present time does not require BiPAP. Patient's ER laboratory and x-ray evaluation revealed possible early pulmonary edema. Her BNP was elevated at 1650, her potassium was low at 2.8 and her white blood count was elevated at 12,500 after having received Solu-Medrol. Patient was subsequently admitted to the hospital for further evaluation and treatment. Physical Exam Vital Signs: Temp Pulse Resp BP Pulse Ox 98.4 F 67 20 119/56 L 97 05/29/19 14:36 05/29/19 14:36 05/29/19 14:36 05/29/19 14:36 05/29/19 14:36 General appearance: PRESENT: no acute distress, well-developed, well-nourished Head exam: PRESENT: atraumatic, normocephalic Eye exam: PRESENT: conjunctiva pink, EOMI, PERRLA. ABSENT: scleral icterus Ear exam: PRESENT: normal external ear exam Mouth exam: PRESENT: moist, tongue midline Neck exam: ABSENT: carotid bruit, JVD, lymphadenopathy, thyromegaly Respiratory exam: PRESENT: clear to auscultation corina. ABSENT: rales, rhonchi, wheezes Cardiovascular exam: PRESENT: RRR. ABSENT: diastolic murmur, rubs, systolic murmur Pulses: PRESENT: normal dorsalis pedis pul Vascular exam: PRESENT: normal capillary refill GI/Abdominal exam: PRESENT: normal bowel sounds, soft. ABSENT: distended, guarding, mass, organolmegaly, rebound, tenderness Rectal exam: PRESENT: deferred Extremities exam: PRESENT: full ROM. ABSENT: calf tenderness, clubbing, pedal edema Neurological exam: PRESENT: alert, awake, oriented to person, oriented to place, oriented to time, oriented to situation, CN II-XII grossly intact. ABSENT: motor sensory deficit Psychiatric exam: PRESENT: appropriate affect, normal mood. ABSENT: homicidal ideation, suicidal ideation Skin exam: PRESENT: dry, intact, warm. ABSENT: cyanosis, rash Results Laboratory Results: 05/29/19 05:34 05/29/19 05:34 05/27/19 15:45 Blood Blood Culture - Final NO GROWTH IN 5 DAYS 05/27/19 13:04 Blood Blood Culture - Final NO GROWTH IN 5 DAYS 05/25/19 05/25/19 05/26/19 21:46 21:46 03:45 Creatine Kinase 55 80 CK-MB (CK-2) 0.62 Troponin I 0.019 NT-Pro-B Natriuret Pep 1820 H 05/26/19 05/26/19 05/26/19 03:45 06:10 09:59 Creatine Kinase 111 CK-MB (CK-2) 1.92 Troponin I 0.142 NT-Pro-B Natriuret Pep 2290 H 05/26/19 05/26/19 05/26/19 09:59 15:35 15:35 Creatine Kinase 114 CK-MB (CK-2) 2.70 2.45 Troponin I 0.083 0.059 NT-Pro-B Natriuret Pep 05/28/19 05/28/19 00:30 00:30 Creatine Kinase 59 CK-MB (CK-2) 1.14 Troponin I 0.029 NT-Pro-B Natriuret Pep Impressions: Chest/Abdomen CTA 05/25/19 22:03 IMPRESSION:No evidence of pulmonary embolus Prominent pulmonary arteries suggesting hypertension Emphysema Mixed alveolar and interstitial infiltrates predominantly in the lung bases. These are nonspecific but may reflect developing edema. Chest X-Ray 05/27/19 11:15 IMPRESSION: STABLE APPEARANCE OF THE CHEST. SUPPORT DEVICES UNCHANGED. Qualifiers - * PATIENT BEING DISCHARGED WITH ANY OF THE FOLLOWING DIAGNOSIS: No Acute Heart Failure - Is this a Heart Failure Patient?: Yes Documentation of LVEF assessment?: Yes LVEF < 40%?: No- if no continue to question #3 3. Anticoagulant therapy for permanect/persistent/paraoxysmal Afib or Aflutter: Yes Follow-up Appointment scheduled within 7 days?: Yes Plan Discharge Plan: Patient is discharged to home in the care of family members. Follow-up with primary care provider within 1 week. Take medications as prescribed. Return to the emergency department as needed for concerning symptoms. Time Spent: Greater than 30 Minutes
== END 2019-05-29 15:00 | disposition home or self-care (01) | DRG 189 ==
LOC: ER 21:39 → EH 05-26 02:43 → 5 05-26 05:40
PROVIDERS: ADMIT Emergency Medicine; ATTEND Emergency Medicine
PROC: 5A09457 Assistance with Respiratory Ventilation, 24-96 Consecutive Hours, Continuous Positive Airway Pressure (ICD-10-PCS; principal; 2019-05-25)
DX: J81.0 Acute pulmonary edema (principal); J96.01 Acute respiratory failure with hypoxia; J44.9 Chronic obstructive pulmonary disease, unspecified; I10 Essential (primary) hypertension; E87.6 Hypokalemia; T46.5X5A Adverse effect of other antihypertensive drugs, initial encounter; Z90.2 Acquired absence of lung [part of]; Z85.118 Personal history of other malignant neoplasm of bronchus and lung; Z79.899 Other long term (current) drug therapy; I25.10 Atherosclerotic heart disease of native coronary artery without angina pectoris; I25.2 Old myocardial infarction; Z82.49 Family history of ischemic heart disease and other diseases of the circulatory system; Z88.1 Allergy status to other antibiotic agents; Z88.8 Allergy status to other drugs, medicaments and biological substances
CPT/HCPCS: 36415; 36600; 51702; 71045; 71046; 71275; 80048; 80053; 80061; 80076; 81001; 82550; 82553; 82803; 82962; 83036; 83735; 83880; 84439; 84443; 84481; 84484; 85025; 85610; 85730; 87040; 87070; 87086; 93005; 93010; 93306; 94640; 94660; 96361; 96374; 96375; 99291; J0360; J0696; J1200; J1642; J1940; J2543; J3360; J3370; J3480; J3490; J7120; J7620

== ENCOUNTER 2019-11-08 21:15 | Inpatient (IN) | payer OTHER ==
[2019-11-08 21:46] LABS: VENOUS BLOOD HCO3 23.2 mmol/L (20-32); VENOUS BLOOD PCO2 45.6 mmHg (35-63); VENOUS BLOOD PH 7.33 (7.30-7.42)
[2019-11-08 21:56] LABS: ABSOLUTE BASOPHILS # (AUTO) 0.1 10^3/uL (0.0-0.2); ABSOLUTE EOSINOPHILS # (AUTO) 0.3 10^3/uL (0.0-0.6); ABSOLUTE LYMPHOCYTES (AUTO) 1.6 10^3/uL (0.5-4.7); ABSOLUTE MONOCYTES (AUTO) 0.9 10^3/uL (0.1-1.4); ABSOLUTE NEUT (AUTO) 8.6 10^3/uL (1.7-8.2); BASOPHILS % (AUTO) 0.7 % (0-2); EOSINOPHILS % (AUTO) 2.3 % (0-6); HEMATOCRIT 42.8 % (36.0-47.0); HEMOGLOBIN 14.7 g/dL (12.0-15.5); LYMPHOCYTES % (AUTO) 13.6 % (13-45); MEAN CORPUSCULAR HGB CONC 34.4 g/dL (32.0-36.0); MEAN CORPUSCULAR VOLUME 87 fl (80-97); MONOCYTES % (AUTO) 7.9 % (3-13); PLATELET COUNT 217 10^3/uL (150-450); RED BLOOD COUNT 4.91 10^6/uL (3.72-5.28); RED CELL DISTRIBUTION WIDTH 15.3 % (11.5-14.0); SEGMENTED NEUTROPHILS % (AUTO) 75.5 % (42-78); TOTAL CELLS COUNTED % (AUTO) 100 %; WHITE BLOOD COUNT 11.4 10^3/uL (4.0-10.5)
[2019-11-08 22:05] LABS: ALBUMIN 3.8 g/dL (3.5-5.0); ALKALINE PHOSPHATASE 93 U/L (38-126); ANION GAP 10 (5-19); ASPARTATE AMINO TRANSFERASE 33 U/L (14-36); BILIRUBIN,DIRECT 0.2 mg/dL (0.0-0.4); BILIRUBIN,TOTAL 0.6 mg/dL (0.2-1.3); BLOOD UREA NITROGEN 11 mg/dL (7-20); CALCIUM 9.2 mg/dL (8.4-10.2); CARBON DIOXIDE 27 mmol/L (22-30); CHLORIDE 104 mmol/L (98-107); GLUCOSE 136 mg/dL (75-110); POTASSIUM 3.5 mmol/L (3.6-5.0); TOTAL PROTEIN 6.9 g/dL (6.3-8.2)
--- NOTE | 2019-11-08 22:10 | RADIOLOGY REPORT (SQ) ---
EXAM DESCRIPTION: [facility]: XR CHEST 1 VIEW CLINICAL HISTORY: 59 years Female; SOB; COMPARISON: None. A 2018 FINDINGS: Right subclavian port is in place, tip in the SVC. There is a new diffuse probably interstitial infiltrate in the right lower lung field. No pneumothorax or pleural effusion. There was some interstitial fibrosis in the lower lobes on the 05/26/2019 CT. No mediastinal widening or shift. Bony structures are unremarkable. IMPRESSION: 1. Increased interstitial densities in the right lower lobe, suspicious for acute pneumonia or pulmonary edema superimposed on pre-existing chronic interstitial fibrosis.
--- NOTE | 2019-11-08 22:28 | ER Document Report ---
ED Respiratory Problem - General Chief Complaint: Respiratory Distress Stated Complaint: RESPIRATORY DISTRESS Time Seen by Provider: 11/08/19 22:19 Notes: Patient is a 59-year-old female that comes emergency department for chief complaint of difficulty breathing. Patient states that she was getting ready for bed when she suddenly started having shortness of breath, she states that this worsened until she felt like she could not breathe at all, ambulance arrived and found patient was 82% on room air with respiratory distress. Patient was given duo nebs, 3 albuterol's, and placed on CPAP. She was transitioned to BiPAP upon arrival to the emergency department. She still reports some shortness of breath but states she can breathe now and she does feel much improved. Patient denies chest pain, abdominal pain, dizziness, fever, cough, passing out. She is up-to-date on influenza vaccine. She has a history of COPD, CHF, former smoker, not on home oxygen. She states she did miss her 40 mg Lasix this morning but she denies leg swelling. She also has a history of lung cancer and atrial fibrillation. TRAVEL OUTSIDE OF THE [place] IN LAST 30 DAYS: No - Related Data Allergies/Adverse Reactions: budesonide Allergy (Verified 05/26/19 04:04) codeine Allergy (Verified 05/26/19 04:04) formoterol [From Symbicort] Allergy (Verified 11/08/19 21:53) moxifloxacin Allergy (Verified 05/26/19 04:04) hydralazine Adverse Reaction (Verified 05/28/19 08:09) avalox Allergy (Uncoded 11/08/19 21:53) Home Medications: eliquis 5mg QD. Lasix 40mg QD. lisinopril. metoprolol. albuterol. crestor. prozac Past Medical History - General Information source: Patient - Social History Smoking Status: Former Smoker Drug Abuse: None Lives with: Family Family History: CAD, Hypertension, Malignancy. denies: DM Patient has suicidal ideation: No Patient has homicidal ideation: No - Past Medical History Cardiac Medical History: Reports: Hx Atrial Fibrillation, Hx Coronary Artery Disease, Hx Heart Attack - caused by air emboli during catheterization, Hx Hypertension Denies: Hx Congestive Heart Failure, Hx DVT, Hx Pulmonary Embolism Pulmonary Medical History: Reports: Hx COPD, Hx Respiratory Failure Neurological Medical History: Denies: Hx Seizures Endocrine Medical History: Denies: Hx Diabetes Mellitus Type 1, Hx Diabetes Mellitus Type 2, Hx Hyperthyroidism, Hx Hypothyroidism Renal/ Medical History: Denies: Hx Peritoneal Dialysis Malignancy Medical History: Reports: Hx Lung Cancer GI Medical History: Denies: Hx Cirrhosis, Hx Crohn's Disease, Hx Gastroesophageal Reflux Disease, Hx Hepatitis, Hx Ulcerative Colitis Musculoskeletal Medical History: Denies Hx Arthritis, Denies Hx Gout Skin Medical History: Denies Hx Eczema, Denies Hx Psoriasis Infectious Medical History: Denies: Hx Hepatitis Past Surgical History: Reports: Other - Lobectomy - Immunizations Immunizations up to date: Yes Hx Diphtheria, Pertussis, Tetanus Vaccination: Yes Review of Systems - Review of Systems Constitutional: No symptoms reported EENT: No symptoms reported Cardiovascular: No symptoms reported Respiratory: See HPI Gastrointestinal: No symptoms reported Genitourinary: No symptoms reported Female Genitourinary: No symptoms reported Musculoskeletal: No symptoms reported Skin: No symptoms reported Hematologic/Lymphatic: No symptoms reported Neurological/Psychological: No symptoms reported Physical Exam - Vital signs Vitals: Resp Pulse Ox 22 H 97 11/08/19 21:19 11/08/19 21:19 - Notes Notes: GENERAL: Alert, cooperative HEAD: Normocephalic, atraumatic. EYES: Pupils equal, round, and reactive to light. Extraocular movements intact. ENT: Oral mucosa moist, tongue midline. Oropharynx unremarkable. Airway patent. Nares patent, no nasal septal hematoma, TM's intact. NECK: Full range of motion. Supple. Trachea midline. LUNGS: Rhonchi in the mid to right lower lungs, tachypnea, however clear lung sounds otherwise. Speaks without completing full sentences. HEART: Regular rate and rhythm. No murmur ABDOMEN: Soft, non-tender. Non-distended. EXTREMITIES: Moves all 4 extremities spontaneously. No edema, normal radial and dorsalis pedis pulses bilaterally. No cyanosis. BACK: no cervical, thoracic, lumbar midline tenderness. No saddle anesthesia, normal distal neurovascular exam. Moves all extremities in full range of motion. NEUROLOGICAL: Alert and oriented x3. Normal speech. Cranial nerves II through XII grossly intact. PSYCH: Normal affect, normal mood. SKIN: Warm, dry, normal turgor. No rashes or lesions noted. Course - Re-evaluation Re-evalutation: On BiPAP patient is doing well, she is not hypoxic, tachycardic, she is not febrile, she is not hypotensive. She still has mild tachypnea and she cannot speak in full sentences without dyspnea but at rest she is not in respiratory distress and is doing well. Patient does have rhonchi in the right mid to lower lobes on exam but she is not wheezing and the remaining lung areas are clear. Venous blood gas had already been obtained and is unremarkable, CBC shows leukocytosis with elevation of neutrophils but no bandemia. Chemistry shows borderline potassium but otherwise unremarkable. Chest x-ray does indicate either pneumonia or edema on the right side in the lower lung. Troponin is negative. BNP is not significantly elevated. Based on her clinical presentation I suspect pneumonia as the cause for patient's difficulty breathing and hypoxia. Started on Rocephin and doxycycline because QTC is already borderline and patient has not been hospitalized within the past 3 months reportedly. Discussed with family. Because of patient's hypoxia, BiPAP requirement, pneumonia, and multiple lung comorbidities including reportedly previous lung cancer and scarring, pulmonary hypertension, COPD, CHF history we will discuss with hospitalist for admission. Patient and family state appreciation. Discussed with Dr. Mcbride, he recommends CT of the chest with contrast to rosy fy patient's condition. Patient was agreeable with the CAT scan, this was performed, again shows either pneumonia (atypical) or edema. This is groundglass opacities and bibasilar lungs. Also shows pulmonary hypertension but patient was already aware of this. I did trial patient off of BiPAP on oxygen but she became very dyspneic, she also was helped up to go to the bathroom and also became extremely short of breath with gasping for air. She was placed back on BiPAP. Discussed with Dr. Mcbride, he admitted to the hospital under telemetry observation. - Vital Signs Vital signs: Temp Pulse Resp BP Pulse Ox 19 134/59 H 98 11/09/19 04:06 11/08/19 21:25 11/09/19 04:06 - Laboratory Result Diagrams: 11/08/19 21:30 11/08/19 21:30 Laboratory results interpreted by me: 11/08/19 11/08/19 11/08/19 21:30 21:30 21:30 WBC 11.4 H RDW 15.3 H Absolute Neuts (auto) 8.6 H Potassium 3.5 L Glucose 136 H NT-Pro-B Natriuret Pep 338 H Urine Protein Urine Ketones Urine Urobilinogen Ur Leukocyte Esterase 11/09/19 00:34 WBC RDW Absolute Neuts (auto) Potassium Glucose NT-Pro-B Natriuret Pep Urine Protein >=500 H Urine Ketones TRACE H Urine Urobilinogen 2.0 H Ur Leukocyte Esterase SMALL H Discharge - Discharge Clinical Impression: Hypoxia, Respiratory distress Pneumonia Qualifiers: Pneumonia type: due to unspecified organism Laterality: bilateral Lung location: lower lobe of lung Qualified Code(s): J18.9 - Pneumonia, unspecified organism Condition: Stable Disposition: ADMITTED OBSERVATION Admitting Provider: Reed (Hospitalist) Unit Admitted: Telemetry
[2019-11-08] MEDS ORDERED: DOXYCYCLINE HYCLATE INJ 100 MG VIAL IV ONE (22:31)
[2019-11-08] MEDS ORDERED: CEFTRIAXONE 1 GM/D5W RTU 1 GM/50 ML RTUPB IV ONE (22:31)
[2019-11-08 23:33] LABS: NT PRO BNP 338 pg/mL (<125)
[2019-11-08 23:37] LABS: TROPONIN I < 0.012 ng/mL
[2019-11-08 23:40] LABS: A TYPE INFLUENZA AG NEGATIVE (NEGATIVE); B INFLUENZA AG NEGATIVE (NEGATIVE)
[2019-11-09 01:01] LABS: APPEARANCE,URINE SLIGHTLY-CLOUDY; BILIRUBIN,URINE NEGATIVE (NEGATIVE); COLOR,URINE YELLOW; GLUCOSE, URINE NEGATIVE (NEGATIVE); KETONES,URINE TRACE mg/dL (NEGATIVE); LEUKOCYTE ESTERASE,URINE SMALL (NEGATIVE); NITRITE,URINE NEGATIVE (NEGATIVE); PROTEIN,URINE >=500 mg/dL (NEGATIVE); URINE SPECIFIC GRAVITY 1.024
[2019-11-09 01:51] LABS: URINE AMPHETAMINES SCREEN NEGATIVE; URINE BARBITURATES SCREEN NEGATIVE; URINE BENZODIAZEPINES SCREEN NEGATIVE; URINE COCAINE SCREEN NEGATIVE; URINE MARIJUANA (THC) SCREEN NEGATIVE; URINE METHADONE SCREEN NEGATIVE; URINE PHENCYCLIDINE SCREEN NEGATIVE
--- NOTE | 2019-11-09 02:32 | RADIOLOGY REPORT (SQ) ---
CT CHEST WITH INTRAVENOUS CONTRAST: 11/09/2019 1:29 AM BLOOD OR BLOOD BANK TECHNICIAN HISTORY: 59-year old patient with dyspnea. TECHNIQUE: Postcontrast CT through the chest was performed. Sagittal and coronal reconstructed images were also obtained and examined. This exam was performed according to our departmental dose-optimization program, which includes automated exposure control, adjustment of the mA and/or KV according to the patient's size and/or use of iterative reconstruction technique. COMPARISON: CT the chest from 05/26/2019 FINDINGS: The heart size is enlarged. No pericardial effusion is seen. No significant mediastinal, supraclavicular, or axillary lymphadenopathy is seen. The thoracic aorta is within normal limits of size. The main pulmonary artery is enlarged and measures at least 3.3 cm in transverse dimension. No obvious filling defect is seen at the visualized pulmonary arteries. There are diffuse groundglass airspace opacities throughout the right hemithorax. There is mild interlobular septal thickening within the lung bases. There is moderate centrilobular emphysematous change present. There is no evidence of pleural effusions or a pneumothorax. The visualized esophagus is patulous. The bones demonstrate no suspicious lytic or blastic lesion. There are several remote bilateral rib fractures and deformities IMPRESSION: There are bibasilar groundglass airspace opacities with some mild interlobular septal thickening. This could be due to edema or atypical infection. The main pulmonary artery is enlarged, which can be seen with pulmonary artery hypertension.
[2019-11-09] MEDS ORDERED: LORAZEPAM 1 MG TABLET PO ONE (03:20)
--- NOTE | 2019-11-09 04:47 | PDOC H&P ---
History of Present Illness Admission Date/PCP: 11/09/19 03:38 BATOOL PIERRE MD Patient complains of: Shortness of breath History of Present Illness: JONNATHAN WEBER is a 59 year old female with past medical history of atrial fibrillation on Eliquis, COPD, lung cancer status post lobectomy, cancer free 10 years, pulmonary hypertension and pulmonary edema. Patient presents with abrupt onset of shortness of breath associated with nonproductive cough in the [facility] she is tachypneic with retractions chest x-ray and CT chest suggest pulmonary edema. She denies preceding chest pain but has had intermittent nausea she is unclear of palpitations. She denies recent change in medications and otherwise feels improved on BiPAP. Past Medical History Cardiac Medical History: Reports: Atrial Fibrillation, Coronary Artery Disease, Myocardial Infarction - caused by air emboli during catheterization, Hypertensio n Denies: Congestive Heart Failure, DVT, Pulmonary Embolism Pulmonary Medical History: Reports: Chronic Obstructive Pulmonary Disease (COPD), Respiratory Failure Neurological Medical History: Denies: Seizures Endocrine Medical History: Denies: Diabetes Mellitus Type 1, Diabetes Mellitus Type 2, Hyperthyroidism, Hypothyroidism Malignancy Medical History: Reports: Lung Cancer GI Medical History: Denies: Cirrhosis, Crohn's Disease, Gastroesophageal Reflux Disease, He patitis, Ulcerative Colitis Musculoskeltal Medical History: Denies: Arthritis, Gout Skin Medical History: Denies: Eczema, Psoriasis Hematology: Denies: Anemia, Bleeding Tendencies Past Surgical History Past Surgical History: Reports: Other - Lobectomy Social History Information Source: Patient Smoking Status: Unknown if Ever Smoked Frequency of Alcohol Use: None Hx Recreational Drug Use: No Drugs: None Hx Prescription Drug Abuse: No - Advance Directive Resuscitation Status: Full Code Family History Family History: CAD, CVA, Hypertension, Malignancy. denies: DM Parental Family History Reviewed: Yes Children Family History Reviewed: Yes Sibling(s) Family History Reviewed.: Yes Medication/Allergy Home Medications: Apixaban [Eliquis 5 mg Tablet] 5 mg PO BID 05/26/19 Clopidogrel Bisulfate [Plavix 75 mg Tablet] 75 mg PO DAILY 05/26/19 Cyanocobalamin (Vitamin B-12) [Vitamin B-12 1000 mcg Tablet] 1,000 mcg PO DAILY 05/26/19 Ergocalciferol (Vitamin D2) [Drisdol 50,000 unit (1.25MG) Capsule] 50,000 unit PO SA@1000 05/26/19 Fluoxetine HCl [Prozac 20 mg Capsule] 60 mg PO DAILY 05/26/19 Furosemide [Lasix 40 mg Tablet] 40 mg PO QAM 05/26/19 Metoprolol Succinate [Toprol Xl 50 mg Tab.sr] 50 mg PO DAILY 05/26/19 Potassium Chloride [Klor-Con 10 Meq Tablet ER] 20 meq PO DAILY 05/26/19 Rosuvastatin Calcium [Crestor 10 mg Tablet] 10 mg PO QHS 05/26/19 Acetaminophen [Tylenol 325 mg Tablet] 650 mg PO Q4HP PRN tablet 05/29/19 Lisinopril [Prinivil 10 mg Tablet] 10 mg PO DAILY #30 tablet 05/29/19 Allergies/Adverse Reactions: budesonide Allergy (Verified 05/26/19 04:04) codeine Allergy (Verified 05/26/19 04:04) formoterol [From Symbicort] Allergy (Verified 11/08/19 21:53) moxifloxacin Allergy (Verified 05/26/19 04:04) hydralazine Adverse Reaction (Verified 05/28/19 08:09) avalox Allergy (Uncoded 11/08/19 21:53) Review of Systems Constitutional: ABSENT: chills, fever(s), headache(s), weight gain, weight loss Eyes: ABSENT: visual disturbances Ears: ABSENT: hearing changes Cardiovascular: ABSENT: chest pain, dyspnea on exertion, edema, orthropnea, palpitations Respiratory: ABSENT: cough, hemoptysis Gastrointestinal: ABSENT: abdominal pain, constipation, diarrhea, hematemesis, hematochezia, nausea, vomiting Genitourinary: ABSENT: dysuria, hematuria Musculoskeletal: ABSENT: joint swelling Integumentary: ABSENT: rash, wounds Neurological: ABSENT: abnormal gait, abnormal speech, confusion, dizziness, focal weakness, syncope Psychiatric: ABSENT: anxiety, depression, homidical ideation, suicidal ideation Endocrine: ABSENT: cold intolerance, heat intolerance, polydipsia, polyuria Hematologic/Lymphatic: ABSENT: easy bleeding, easy bruising Physical Exam Vital Signs: Temp Pulse Resp BP Pulse Ox 19 134/59 H 98 11/09/19 04:06 11/08/19 21:25 11/09/19 04:06 Intake & Output 11/07/19 11/08/19 11/09/19 11:59 11:59 11:59 Intake Total 50 Balance 50 Weight 72.575 kg General appearance: PRESENT: cooperative, severe distress, well-developed, well- nourished Head exam: PRESENT: atraumatic, normocephalic Eye exam: PRESENT: conjunctiva pink, EOMI, PERRLA. ABSENT: scleral icterus Ear exam: PRESENT: normal external ear exam Mouth exam: PRESENT: moist, tongue midline Neck exam: ABSENT: carotid bruit, JVD, lymphadenopathy, thyromegaly Respiratory exam: PRESENT: accessory muscle use, decreased breath sounds, retraction, tachypnea, wheezes. ABSENT: chest wall tenderness, clear to auscultation [place] Cardiovascular exam: PRESENT: irregular rhythm, +S1, +S2, tachycardia Pulses: PRESENT: normal dorsalis pedis pul Vascular exam: PRESENT: normal capillary refill GI/Abdominal exam: PRESENT: normal bowel sounds, soft. ABSENT: distended, guarding, mass, organolmegaly, rebound, tenderness Rectal exam: PRESENT: deferred Extremities exam: PRESENT: full ROM. ABSENT: calf tenderness, clubbing, pedal edema Neurological exam: PRESENT: alert, awake, oriented to person, oriented to place, oriented to time, oriented to situation, CN II-XII grossly intact. ABSENT: motor sensory deficit Psychiatric exam: PRESENT: appropriate affect, normal mood. ABSENT: homicidal ideation, suicidal ideation Skin exam: PRESENT: dry, intact, warm. ABSENT: cyanosis, rash Results Laboratory Results: 11/08/19 21:30 11/08/19 21:30 11/08/19 11/08/19 11/08/19 21:30 21:30 21:30 WBC 11.4 H RBC 4.91 Hgb 14.7 Hct 42.8 MCV 87 MCH 30.0 MCHC 34.4 RDW 15.3 H Plt Count 217 Seg Neutrophils % 75.5 VBG pH 7.33 VBG pCO2 45.6 VBG HCO3 23.2 VBG Base Excess -3.0 Sodium 140.6 Potassium 3.5 L Chloride 104 Carbon Dioxide 27 Anion Gap 10 BUN 11 Creatinine 0.85 Est GFR ( Amer) > 60 Glucose 136 H Calcium 9.2 Total Bilirubin 0.6 AST 33 Alkaline Phosphatase 93 Total Protein 6.9 Albumin 3.8 Urine Color Urine Appearance Urine pH Ur Specific [place] Urine Protein Urine Glucose (UA) Urine Ketones Urine Blood Urine Nitrite Ur Leukocyte Esterase Urine WBC (Auto) Urine RBC (Auto) 11/09/19 00:34 WBC RBC Hgb Hct MCV MCH MCHC RDW Plt Count Seg Neutrophils % VBG pH VBG pCO2 VBG HCO3 VBG Base Excess Sodium Potassium Chloride Carbon Dioxide Anion Gap BUN Creatinine Est GFR ( Amer) Glucose Calcium Total Bilirubin AST Alkaline Phosphatase Total Protein Albumin Urine Color YELLOW Urine Appearance SLIGHTLY-CLOUDY Urine pH 5.0 Ur Specific [place] 1.024 Urine Protein >=500 H Urine Glucose (UA) NEGATIVE Urine Ketones TRACE H Urine Blood NEGATIVE Urine Nitrite NEGATIVE Ur Leukocyte Esterase SMALL H Urine WBC (Auto) 21 Urine RBC (Auto) 4 11/08/19 21:30 Troponin I < 0.012 NT-Pro-B Natriuret Pep 338 H Impressions: Chest X-Ray 11/08/19 21:31 IMPRESSION: 1. Increased interstitial densities in the right lower lobe, suspicious for acute pneumonia or pulmonary edema superimposed on pre-existing chronic interstitial fibrosis. Chest CT 11/08/19 23:53 IMPRESSION: There are bibasilar groundglass airspace opacities with some mild interlobular septal thickening. This could be due to edema or atypical infection. The main pulmonary artery is enlarged, which can be seen with pulmonary artery hypertension. Assessment and Plan - Diagnosis (1) Acute pulmonary edema Is this a current diagnosis for this admission?: Yes Plan: Likely secondary to intermittent A. fib with RVR complicated by underlying pulmonary hypertension. Trial diuresis and optimize rate and blood pressure control (2) Atrial fibrillation Is this a current diagnosis for this admission?: Yes Plan: Continue Eliquis, optimize Lopressor (3) Bronchitis Is this a current diagnosis for this admission?: Yes Plan: Doxycycline, flutter valve (4) Hypoxia Is this a current diagnosis for this admission?: Yes Plan: Patient has history of outpatient oxygen dependence but does not have it available at home. Discharge planning consulted for supplemental outpatient oxygen. - Time Time Spent with patient: 25-34 minutes - Inpatient Certification Medical Necessity: Need Close Monitoring Due to Risk of Patient Decompensation
[2019-11-09] MEDS: METOPROLOL TARTRATE 50 MG TABLET PO SCH ×2 (05:34→10:40)
[2019-11-09] MEDS: DOXYCYCLINE HYCLATE 100 MG TABLET PO SCH ×2 (10:40→22:07)
[2019-11-09] MEDS: FUROSEMIDE INJ/PF 40 MG/4 ML SDV IV SCH (10:42)
--- NOTE | 2019-11-09 14:53 | EKG REPORT ---
SEVERITY:- ABNORMAL ECG - SINUS RHYTHM RIGHT AXIS DEVIATION PROLONGED QT INTERVAL : Confirmed by: Victoria Vigil MD 09-Nov-2019 14:52:20
[2019-11-09] MEDS ORDERED: IPRATROPIUM IH SCH (21:45)
[2019-11-09] MEDS ORDERED: [UNRECOGNIZED DRUG - OTHER] IH SCH (21:45)
[2019-11-09] MEDS ORDERED: ALBUTEROL SULFATE IH SCH (21:45)
[2019-11-09] MEDS: FLUOXETINE HCL 20 MG CAPSULE PO SCH (22:07)
[2019-11-09] MEDS: METOPROLOL SUCCINATE 50 MG TAB.SR.24H PO SCH (22:07)
[2019-11-09] MEDS: APIXABAN 5 MG TABLET PO SCH (22:07)
[2019-11-10] MEDS: METOPROLOL SUCCINATE 50 MG TAB.SR.24H PO SCH (10:16)
[2019-11-10] MEDS: LISINOPRIL 10 MG TABLET PO SCH ×2 (10:16→17:31)
[2019-11-10] MEDS: APIXABAN 5 MG TABLET PO SCH (10:16)
[2019-11-10] MEDS: ASPIRIN 81 MG TABLET, ENT COATED PO SCH (10:16)
[2019-11-10] MEDS: FUROSEMIDE INJ/PF 40 MG/4 ML SDV IV SCH (10:16)
[2019-11-10] MEDS: FLUOXETINE HCL 20 MG CAPSULE PO SCH (10:16)
[2019-11-10] MEDS: DOXYCYCLINE HYCLATE 100 MG TABLET PO SCH ×2 (10:18→22:00)
[2019-11-10] MEDS: ACETAMINOPHEN 325 MG TABLET PO PRN ×2 (12:15→17:30)
[2019-11-10] MEDS ORDERED: IPRATROPIUM/ALBUTEROL 0.5-2.5 MG/3 ML AMPUL NEB SCH (16:00)
--- NOTE | 2019-11-10 17:00 | PDOC PROGRESS REPORT ---
Subjective Progress Note for:: 11/10/19 Subjective:: No adverse events overnight. No new complaints. Vital signs been stable. She still has a nasal cannula on but her oxygen has been turned off. She says she is not tried to get out of bed and walk yet. Her appetite is been good. Reason For Visit: ACUTE HYPOXEMIC RESPIRATORY FAILURE,ACUTE Physical Exam Vital Signs: Temp Pulse Resp BP Pulse Ox 97.5 F 48 L 20 148/52 H 99 11/10/19 11:59 11/10/19 14:00 11/10/19 11:59 11/10/19 11:59 11/10/19 11:59 Intake & Output 11/09/19 11/10/19 11/11/19 06:59 06:59 06:59 Intake Total 50 0 844 Output Total 300 950 Balance 50 -300 -106 Weight 72.575 kg 73.4 kg General appearance: PRESENT: no acute distress, cooperative, disheveled, obese Respiratory exam: PRESENT: decreased breath sounds, symmetrical, unlabored. ABSENT: accessory muscle use, chest wall tenderness, crackles, prolonged expiratory phas, rales, retraction, rhonchi, tachypnea, wheezes Cardiovascular exam: PRESENT: RRR, +S1, +S2 Pulses: PRESENT: normal carotid pulses Vascular exam: PRESENT: normal capillary refill GI/Abdominal exam: PRESENT: normal bowel sounds, soft. ABSENT: distended, guarding, rebound, tenderness Extremities exam: ABSENT: clubbing, pedal edema Musculoskeletal exam: PRESENT: normal inspection. ABSENT: deformity Neurological exam: PRESENT: alert, awake, oriented to person, oriented to place, oriented to situation Psychiatric exam: PRESENT: flat affect Skin exam: PRESENT: dry, warm Results Laboratory Results: 11/08/19 21:30 11/08/19 21:30 11/08/19 11/09/19 21:30 06:45 Troponin I < 0.012 0.016 NT-Pro-B Natriuret Pep 338 H Impressions: Chest X-Ray 11/08/19 21:31 IMPRESSION: 1. Increased interstitial densities in the right lower lobe, suspicious for acute pneumonia or pulmonary edema superimposed on pre-existing chronic interstitial fibrosis. Chest CT 11/08/19 23:53 IMPRESSION: There are bibasilar groundglass airspace opacities with some mild interlobular septal thickening. This could be due to edema or atypical infection. The main pulmonary artery is enlarged, which can be seen with pulmonary artery hypertension. Assessment and Plan - Diagnosis (1) Atrial fibrillation Qualifiers: Atrial fibrillation type: paroxysmal Qualified Code(s): I48.0 - Paroxysmal atrial fibrillation Is this a current diagnosis for this admission?: Yes Plan: Currently in a sinus rhythm, continue her usual medications. (2) Bronchitis Is this a current diagnosis for this admission?: Yes Plan: Responding well to steroids and bronchodilators, continue current treatment (3) Pneumonia Qualifiers: Pneumonia type: due to unspecified organism Laterality: bilateral Lung location: lower lobe of lung Qualified Code(s): J18.9 - Pneumonia, unspecified organism Is this a current diagnosis for this admission?: Yes Plan: Continue current antibiotics, cultures pending (4) Acute respiratory failure with hypoxia Is this a current diagnosis for this admission?: Yes Plan: Resolved, currently on room air. Will ambulate on room air. - Time Time Spent with patient: 15-24 minutes
[2019-11-10] MEDS ORDERED: IPRATROPIUM/ALBUTEROL 0.5-2.5 MG/3 ML AMPUL NEB ONE (21:30)
[2019-11-10] MEDS: ATORVASTATIN CALCIUM 20 MG TABLET PO SCH (22:00)
[2019-11-10] MEDS: IPRATROPIUM/ALBUTEROL 0.5-2.5 MG/3 ML AMPUL NEB SCH ×2 (22:07→22:08)
[2019-11-11] MEDS ORDERED: IPRATROPIUM/ALBUTEROL 0.5-2.5 MG/3 ML AMPUL NEB SCH (02:00)
[2019-11-11] MEDS: IPRATROPIUM/ALBUTEROL 0.5-2.5 MG/3 ML AMPUL NEB SCH ×4 (02:06→19:26)
[2019-11-11] MEDS: ASPIRIN 81 MG TABLET, ENT COATED PO SCH (09:11)
[2019-11-11] MEDS: LISINOPRIL 10 MG TABLET PO SCH ×2 (09:11→17:27)
[2019-11-11] MEDS: DOXYCYCLINE HYCLATE 100 MG TABLET PO SCH ×2 (09:11→21:54)
[2019-11-11] MEDS: APIXABAN 5 MG TABLET PO SCH (09:11)
[2019-11-11] MEDS: FLUOXETINE HCL 20 MG CAPSULE PO SCH (09:11)
[2019-11-11] MEDS: METOPROLOL SUCCINATE 50 MG TAB.SR.24H PO SCH (09:12)
[2019-11-11] MEDS: FUROSEMIDE INJ/PF 40 MG/4 ML SDV IV SCH (09:12)
--- NOTE | 2019-11-11 14:19 | PDOC PROGRESS REPORT ---
Subjective Progress Note for:: 11/11/19 Subjective:: No adverse events overnight. She is been on room air, but when she got up to go to the bathroom and came back to the bed she was short of breath and it took her quite a while before she was able to catch her breath back. She said that is actually pretty normal for her. She said is been recommended that she go on oxygen in the past but she has been putting it off as long as possible. Reason For Visit: ACUTE HYPOXEMIC RESPIRATORY FAILURE,ACUTE Physical Exam Vital Signs: Temp Pulse Resp BP Pulse Ox 98.0 F 62 16 126/50 H 98 11/11/19 12:00 11/11/19 12:00 11/11/19 12:00 11/11/19 12:00 11/11/19 12:00 Intake & Output 11/10/19 11/11/19 11/12/19 06:59 06:59 06:59 Intake Total 0 1553 Output Total 300 950 Balance -300 603 Weight 73.4 kg 73.4 kg General appearance: PRESENT: Mild distress that resolved with rest, cooperative, disheveled, obese Respiratory exam: PRESENT: decreased breath sounds, symmetrical, labored, mild accessory muscle use. ABSENT: chest wall tenderness, crackles, prolonged expiratory phas, rales, retraction, rhonchi, tachypnea, wheezes Cardiovascular exam: PRESENT: RRR, +S1, +S2 Pulses: PRESENT: normal carotid pulses Vascular exam: PRESENT: normal capillary refill GI/Abdominal exam: PRESENT: normal bowel sounds, soft. ABSENT: distended, guarding, rebound, tenderness Extremities exam: ABSENT: clubbing, pedal edema Musculoskeletal exam: PRESENT: normal inspection. ABSENT: deformity Neurological exam: PRESENT: alert, awake, oriented to person, oriented to place, oriented to situation Psychiatric exam: PRESENT: flat affect Skin exam: PRESENT: dry, warm Results Laboratory Results: 11/08/19 21:30 11/08/19 21:30 11/08/19 11/09/19 21:30 06:45 Troponin I < 0.012 0.016 NT-Pro-B Natriuret Pep 338 H Impressions: Chest X-Ray 11/08/19 21:31 IMPRESSION: 1. Increased interstitial densities in the right lower lobe, suspicious for acute pneumonia or pulmonary edema superimposed on pre-existing chronic interstitial fibrosis. Chest CT 11/08/19 23:53 IMPRESSION: There are bibasilar groundglass airspace opacities with some mild interlobular septal thickening. This could be due to edema or atypical infection. The main pulmonary artery is enlarged, which can be seen with pulmonary artery hypertension. Assessment and Plan - Diagnosis (1) Atrial fibrillation Qualifiers: Atrial fibrillation type: paroxysmal Qualified Code(s): I48.0 - Paroxysmal atrial fibrillation Is this a current diagnosis for this admission?: Yes Plan: Currently in a sinus rhythm, continue her usual medications. (2) Bronchitis Is this a current diagnosis for this admission?: Yes Plan: Responding well to steroids and bronchodilators, continue current treatment (3) Pneumonia Qualifiers: Pneumonia type: due to unspecified organism Laterality: bilateral Lung location: lower lobe of lung Qualified Code(s): J18.9 - Pneumonia, unspecified organism Is this a current diagnosis for this admission?: Yes Plan: Continue current antibiotics, cultures pending (4) Acute respiratory failure with hypoxia Is this a current diagnosis for this admission?: Yes Plan: Currently on room air. Will ambulate on room air. I suspect she will qualify for oxygen, and will get it for her to use at home if needed. - Time Time Spent with patient: 15-24 minutes
[2019-11-11] MEDS: ATORVASTATIN CALCIUM 20 MG TABLET PO SCH (21:54)
[2019-11-12] MEDS: IPRATROPIUM/ALBUTEROL 0.5-2.5 MG/3 ML AMPUL NEB SCH ×3 (01:47→14:59)
[2019-11-12] MEDS: APIXABAN 5 MG TABLET PO SCH (11:42)
[2019-11-12] MEDS: LISINOPRIL 10 MG TABLET PO SCH (11:42)
[2019-11-12] MEDS: METOPROLOL SUCCINATE 50 MG TAB.SR.24H PO SCH (11:42)
[2019-11-12] MEDS: ASPIRIN 81 MG TABLET, ENT COATED PO SCH (11:42)
[2019-11-12] MEDS: FLUOXETINE HCL 20 MG CAPSULE PO SCH (11:43)
[2019-11-12] MEDS: DOXYCYCLINE HYCLATE 100 MG TABLET PO SCH (11:43)
[2019-11-12] MEDS: FUROSEMIDE INJ/PF 40 MG/4 ML SDV IV SCH (11:43)
[2019-11-12 13:26] VITALS: BP 139/66
--- NOTE | 2019-11-12 14:44 | PDOC DISCHARGE SUMMARY ---
Impression - Admit/DC Date/PCP Admission Date/Primary Care Provider: 11/09/19 17:08 BATOOL PIERRE MD Discharge Date: 11/12/19 - Discharge Diagnosis (1) Atrial fibrillation Is this a current diagnosis for this admission?: Yes (2) Pneumonia Is this a current diagnosis for this admission?: Yes (3) Acute respiratory failure with hypoxia Is this a current diagnosis for this admission?: Yes (4) Chronic obstructive pulmonary disease Is this a current diagnosis for this admission?: Yes - Additional Information Resuscitation Status: Full Code Discharge Diet: Cardiac Discharge Activity: Activity As Tolerated, Balance Activity w/Rest, Slowly Increase Activity Referrals: BATOOL PIERRE MD [Primary Care Provider] - 11/19/19 1:30 pm (phone # [phone]) Prescriptions: Doxycycline Hyclate [Vibramycin 100 mg Tablet] 100 mg PO Q12 #6 tablet Home Medications: Apixaban [Eliquis 5 mg Tablet] 5 mg PO DAILY 05/26/19 Fluoxetine HCl [Prozac 20 mg Capsule] 60 mg PO DAILY 05/26/19 Metoprolol Succinate [Toprol Xl 50 mg Tab.sr] 50 mg PO DAILY 05/26/19 Rosuvastatin Calcium [Crestor 10 mg Tablet] 10 mg PO QHS 05/26/19 Aspirin [Ecotrin 81 mg EC Tablet] 81 mg PO DAILY 11/09/19 Lisinopril [Prinivil 10 mg Tablet] 10 mg PO BID 11/09/19 Doxycycline Hyclate [Vibramycin 100 mg Tablet] 100 mg PO Q12 #6 tablet 11/12/19 History of Present Illiness History of Present Illness: JONNATHAN WEBER is a 59 year old female with past medical history of atrial fibrillation on Eliquis, COPD, lung cancer status post lobectomy, cancer free 10 years, pulmonary hypertension and pulmonary edema. Patient presents with abrupt onset of shortness of breath associated with nonproductive cough in the emergency department she is tachypneic with retractions chest x-ray and CT chest suggest pulmonary edema. She denies preceding chest pain but has had intermittent nausea she is unclear of palpitations. She denies recent change in medications and otherwise feels improved on BiPAP. Hospital Course Hospital Course: She responded to a few doses of steroids and regular breathing treatments. She was hypoxic with ambulation and requires oxygen due to chronic hypoxemic respiratory failure as a result of her longstanding COPD. She basically has only 3 of the 5 lung lobes she was born with due to resections from cancer, and what lung she does have is diseased with COPD. Her heart rate was controlled with her home medications. It was also felt like she may have had a little bit of pulmonary edema due to ineffective circulation due to rapid atrial fibrillation, but this corrected quickly. We got home oxygen prepared for her and discharge her home. She will complete a few more days of some doxycycline. Her labs and examination were reassuring and she was discharged in stable condition. Physical Exam Vital Signs: Temp Pulse Resp BP Pulse Ox 98.1 F 57 L 16 139/66 H 99 11/12/19 13:46 11/12/19 13:46 11/12/19 13:46 11/12/19 13:46 11/12/19 13:46 Intake & Output 11/11/19 11/12/19 11/13/19 06:59 06:59 06:59 Intake Total 1553 582 Output Total 950 Balance 603 582 Weight 73.4 kg 74.3 kg General appearance: PRESENT: No acute distress, cooperative, disheveled, obese Respiratory exam: PRESENT: decreased breath sounds, symmetrical, labored, mild accessory muscle use. ABSENT: chest wall tenderness, crackles, prolonged expiratory phas, rales, retraction, rhonchi, tachypnea, wheezes Cardiovascular exam: PRESENT: RRR, +S1, +S2 Pulses: PRESENT: normal carotid pulses Vascular exam: PRESENT: normal capillary refill GI/Abdominal exam: PRESENT: normal bowel sounds, soft. ABSENT: distended, guarding, rebound, tenderness Extremities exam: ABSENT: clubbing, pedal edema Musculoskeletal exam: PRESENT: normal inspection. ABSENT: deformity Neurological exam: PRESENT: alert, awake, oriented to person, oriented to place, oriented to situation Psychiatric exam: PRESENT: flat affect Skin exam: PRESENT: dry, warm Results Laboratory Results: WBC 11.4 10^3/uL (4.0-10.5) H 11/08/19 21:30 RBC 4.91 10^6/uL (3.72-5.28) 11/08/19 21:30 Hgb 14.7 g/dL (12.0-15.5) 11/08/19 21:30 Hct 42.8 % (36.0-47.0) 11/08/19 21:30 MCV 87 fl (80-97) 11/08/19 21:30 MCH 30.0 pg (27.0-33.4) 11/08/19 21:30 MCHC 34.4 g/dL (32.0-36.0) 11/08/19 21:30 RDW 15.3 % (11.5-14.0) H 11/08/19 21:30 Plt Count 217 10^3/uL (150-450) 11/08/19 21:30 Lymph % (Auto) 13.6 % (13-45) 11/08/19 21:30 Newton % (Auto) 7.9 % (3-13) 11/08/19 21:30 Eos % (Auto) 2.3 % (0-6) 11/08/19 21: Baso % (Auto) 0.7 % (0-2) 11/08/19 21:30 Absolute Neuts (auto) 8.6 10^3/uL (1.7-8.2) H 11/08/19 21:30 Absolute Lymphs (auto) 1.6 10^3/uL (0.5-4.7) 11/08/19 21:30 Absolute Monos (auto) 0.9 10^3/uL (0.1-1.4) 11/08/19 21:30 Absolute Eos (auto) 0.3 10^3/uL (0.0-0.6) 11/08/19 21:30 Absolute Basos (auto) 0.1 10^3/uL (0.0-0.2) 11/08/19 21:30 Seg Neutrophils % 75.5 % (42-78) 11/08/19 21:30 VBG pH 7.33 (7.30-7.42) 11/08/19 21:30 VBG pCO2 45.6 mmHg (35-63) 11/08/19 21:30 VBG HCO3 23.2 mmol/L (20-32) 11/08/19 21:30 VBG Base Excess -3.0 mmol/L 11/08/19 21:30 Sodium 140.6 mmol/L (137-145) 11/08/19 21:30 Potassium 3.5 mmol/L (3.6-5.0) L 11/08/19 21:30 Chloride 104 mmol/L (98-107) 11/08/19 21:30 Carbon Dioxide 27 mmol/L (22-30) 11/08/19 21:30 Anion Gap 10 (5-19) 11/08/19 21:30 BUN 11 mg/dL (7-20) 11/08/19 21:30 Creatinine 0.85 mg/dL (0.52-1.25) 11/08/19 21:30 Est GFR ( Amer) > 60 (>60) 11/08/19 21:30 Est GFR (MDRD) Non-Af > 60 (>60) 11/08/19 21:30 Glucose 136 mg/dL (75-110) H 11/08/19 21:30 Calcium 9.2 mg/dL (8.4-10.2) 11/08/19 21:30 Total Bilirubin 0.6 mg/dL (0.2-1.3) 11/08/19 21:30 Direct Bilirubin 0.2 mg/dL (0.0-0.4) 11/08/19 21:30 Neonat Total Bilirubin Not Reportable 11/08/19 21:30 Neonat Direct Bilirubin Not Reportable 11/08/19 21:30 Neonat Indirect Bili Not Reportable 11/08/19 21:30 AST 33 U/L (14-36) 11/08/19 21:30 ALT 23 U/L (<35) 11/08/19 21:30 Alkaline Phosphatase 93 U/L (38-126) 11/08/19 21:30 Troponin I 0.016 ng/mL 11/09/19 06:45 NT-Pro-B Natriuret Pep 338 pg/mL (<125) H 11/08/19 21:30 Total Protein 6.9 g/dL (6.3-8.2) 11/08/19 21:30 Albumin 3.8 g/dL (3.5-5.0) 11/08/19 21:30 Urine Color YELLOW 11/09/19 00:34 Urine Appearance SLIGHTLY-CLOUDY 11/09/19 00:34 Urine pH 5.0 (5.0-9.0) 11/09/19 00:34 Ur Specific Stephenson 1.024 11/09/19 00:34 Urine Protein >=500 mg/dL (NEGATIVE) H 11/09/19 00:34 Urine Glucose (UA) NEGATIVE mg/dL (NEGATIVE) 11/09/19 00:34 Urine Ketones TRACE mg/dL (NEGATIVE) H 11/09/19 00:34 Urine Blood NEGATIVE (NEGATIVE) 11/09/19 00:34 Urine Nitrite NEGATIVE (NEGATIVE) 11/09/19 00:34 Urine Bilirubin NEGATIVE (NEGATIVE) 11/09/19 00:34 Urine Urobilinogen 2.0 mg/dL (<2.0) H 11/09/19 00:34 Ur Leukocyte Esterase SMALL (NEGATIVE) H 11/09/19 00:34 Urine WBC (Auto) 21 /HPF 11/09/19 00:34 Urine RBC (Auto) 4 /HPF 11/09/19 00:34 U Hyaline Cast (Auto) 6 /LPF 11/09/19 00:34 Urine Bacteria (Auto) TRACE /HPF 11/09/19 00:34 Squamous Epi Cells Auto 4 /HPF 11/09/19 00:34 U Non-Squamous Epis Auto 1 /HPF 11/09/19 00:34 Urine Mucus (Auto) MOD /LPF 11/09/19 00:34 Urine Ascorbic Acid NEGATIVE (NEGATIVE) 11/09/19 00:34 Urine Opiates Screen NEGATIVE 11/09/19 00:34 Urine Methadone Screen NEGATIVE 11/09/19 00:34 Ur Barbiturates Screen NEGATIVE 11/09/19 00:34 Ur Phencyclidine Scrn NEGATIVE 11/09/19 00:34 Ur Amphetamines Screen NEGATIVE 11/09/19 00:34 U Benzodiazepines Scrn NEGATIVE 11/09/19 00:34 Urine Cocaine Screen NEGATIVE 11/09/19 00:34 U Marijuana (THC) Screen NEGATIVE 11/09/19 00:34 Influenza A (Rapid) NEGATIVE (NEGATIVE) 11/08/19 23:06 Influenza B (Rapid) NEGATIVE (NEGATIVE) 11/08/19 23:06 11/08/19 11/09/19 21:30 06:45 Troponin I < 0.012 0.016 NT-Pro-B Natriuret Pep 338 H Impressions: Chest X-Ray 11/08/19 21:31 IMPRESSION: 1. Increased interstitial densities in the right lower lobe, suspicious for acute pneumonia or pulmonary edema superimposed on pre-existing chronic interstitial fibrosis. Chest CT 11/08/19 23:53 IMPRESSION: There are bibasilar groundglass airspace opacities with some mild interlobular septal thickening. This could be due to edema or atypical infection. The main pulmonary artery is enlarged, which can be seen with pulmonary artery hypertension. Plan Time Spent: Greater than 30 Minutes Stroke Is this a Stroke Patient?: No Acute Heart Failure - Is this a Heart Failure Patient?: No
== END 2019-11-12 17:00 | disposition home or self-care (01) | DRG 308 ==
LOC: ER 21:15 → EH 11-09 03:38 → 5 11-09 13:51 → OBSVTOIN 11-09 17:08
PROVIDERS: ADMIT Internal Medicine; ATTEND Internal Medicine
PROC: 5A09357 Assistance with Respiratory Ventilation, Less than 24 Consecutive Hours, Continuous Positive Airway Pressure (ICD-10-PCS; principal; 2019-11-09)
DX: I48.0 Paroxysmal atrial fibrillation (principal); J18.9 Pneumonia, unspecified organism; J96.21 Acute and chronic respiratory failure with hypoxia; J81.1 Chronic pulmonary edema; I27.20 Pulmonary hypertension, unspecified; J44.9 Chronic obstructive pulmonary disease, unspecified; E66.9 Obesity, unspecified; I25.10 Atherosclerotic heart disease of native coronary artery without angina pectoris; I10 Essential (primary) hypertension; Z79.01 Long term (current) use of anticoagulants; Z79.82 Long term (current) use of aspirin; Z85.118 Personal history of other malignant neoplasm of bronchus and lung; Z90.2 Acquired absence of lung [part of]; I25.2 Old myocardial infarction; Z88.6 Allergy status to analgesic agent; Z88.1 Allergy status to other antibiotic agents; Z88.8 Allergy status to other drugs, medicaments and biological substances; Z80.9 Family history of malignant neoplasm, unspecified; Z82.49 Family history of ischemic heart disease and other diseases of the circulatory system
CPT/HCPCS: 36415; 51701; 71045; 71260; 80053; 80307; 81001; 82803; 83880; 84484; 85025; 87040; 87804; 93005; 93010; 94640; 94660; 96365; 96367; 96375; 99285; J0696; J1940; J3490; J7620